=== PATIENT | male | born 1945 | race Caucasian/White ===

== ENCOUNTER 2024-04-09 12:12 | Inpatient (IN) | payer MEDICARE, BC, SELFPAY ==
[2024-04-09 12:25] VITALS: BP 146/81; PULSE 77; RESP 19; TEMP 36.7; O2SAT 98
[2024-04-09 12:28] VITALS: BMI 32.3
--- NOTE | 2024-04-09 12:44 | XR_ITS ---
Examination: CT cervical spine without contrast 2-D sagittal reconstructions 2-D coronal reconstructions 3-D reconstructions. Exam date and time:April 09, 2024 1511 hours Indications patient fell today with injury to the neck, neck pain CTDI:vol (mGy) 9.23 DLP: (mGycm) 223 Technique: Multiple 2 mm axial sections of the cervical spine have been obtained. The coronal and sagittal reconstructions have been obtained. 3-D reconstructions have been obtained. Low dose protocols were performed. One or more of the following dose reduction techniques were used; automated exposure control, adjustment of the mA and/or KV according to patient size, use of iterative reconstruction technique. Findings: Axial sections demonstrate intact base of the skull. C1 exhibit satisfactory relationship to the odontoid. No acute cervical vertebral body fracture seen. Alignment posterior spinous processes satisfactory. Impression: No acute cervical fracture.
--- NOTE | 2024-04-09 12:44 | XR_ITS ---
Examination: CT brain head without contrast. 2-D sagittal coronal reconstructions Date and time of exam:April 09, 2024 1511 hours Comparison April 28, 2019 INDICATIONS: Patient fell today with injury to the head, head pain and neck pain CTDI: vol (mGy):56.7 DLP: (mGycm):1157 Technique: Multiple CT axial sections of the brain have been obtained, 5 mm slice thickness. Contrast has not been administered. 2-D sagittal, coronal reconstructions have been obtained Low dose protocols were performed. One or more of the following dose reduction techniques were used; automated exposure control, adjustment of the mA and/or KV according to patient size, use of iterative reconstruction technique. Findings: No significant ventricular enlargement. Intra-axial or extra-axial hemorrhage density is not seen. No mass effect or midline shift Basal cisterns are not remarkable. Fourth ventricle is midline. Cranial vault intact. Impression: Negative for acute hemorrhage, mass effect or midline shift
--- NOTE | 2024-04-09 12:45 | PD.EDRME ---
Rapid Medical Screening Exam RME Arrival date/time: 04/09/24 12:12 78-year-old male presents to the emergency department today with who reports patient has increased diarrhea and confusion patient has been following. Per the patient's he has dementia and has terminal cancer Chief Complaint: General Adult/Misc Complain Time Seen by Provider: 04/09/24 12:39 Vital signs: Vital Signs Temperature 98.1 F 04/09/24 12:25 Pulse Rate 77 04/09/24 12:25 Respiratory Rate 19 04/09/24 12:25 Blood Pressure 146/81 H 04/09/24 12:25 Pulse Oximetry (%) 98 04/09/24 12:25 Oxygen Delivery Method Room Air 04/09/24 12:25
[2024-04-09 13:12] LABS: Lactate (Lactic Acid) 2.6 mMol/L (0.4-2.0)
--- NOTE | 2024-04-09 13:13 | PC.NURSE ---
Per family at bedside pt has been falling more recently. Pt has been more confused, has incurable colon cancer and has diarrhea, and wears a brief at baseline. Family remains at bedside attentive to pt, IV place, BC collected. Pt currently awaiting main ED providers assessment. Call sparks in reach
[2024-04-09 13:14] LABS: Basophils % (Auto) 0 % (0-2.5); Eosinophils # (Auto) 0.2 Thou/mm3 (0.0-0.5); Eosinophils % (Auto) 2 % (0-10); Hematocrit 43.2 % (41.0-53.0); Hemoglobin 13.1 g/dL (13.5-16.0); Immature Granulocytes % (Auto) 0 % (0-0); Immature Granulocytes Auto 0.02 Thou/mm3 (0.00-0.00); Lymphocytes # (Auto) 0.7 Thou/mm3 (1.0-4.8); Lymphocytes % (Auto) 7 % (10-50); Mean Corpuscular HGB Conc 30.3 g/dl (31.0-37.0); Mean Corpuscular Hemoglobin 27.1 pg (25.0-35.0); Mean Corpuscular Volume 89 fL (80-100); Monocytes # (Auto) 0.8 Thou/mm3 (0.0-0.8); Monocytes % (Auto) 8 % (0-12); Neutrophils # (Auto) 8.2 Thou/mm3 (1.8-7.7); Neutrophils % (Auto) 82 % (37-80); Nucleated Red Blood Cell % 0 /100 WBC (0); Platelet Count 160 Thou/mm3 (140-440); RDW Standard Deviation 63.2 fL (35.1-43.9); Red Blood Count 4.84 Miln/mm3 (4.50-5.90)
[2024-04-09 13:40] LABS: Ammonia < 10 uMol/L (11-32)
[2024-04-09 13:41] LABS: Alanine Aminotransferase 24 U/L (10-49); Albumin, Serum 4.3 gm/dL (3.4-4.8); Albumin/Globulin Ratio 1.3 (1.2-2.2); Alkaline Phosphatase 135 U/L (46-116); Anion Gap 6 (7-16); Aspartate Amino Transferase 34 U/L (0-34); BUN/Creatinine Ratio 13 Ratio (12-20); Bilirubin,Total 0.4 mg/dL (0.3-1.2); Blood Urea Nitrogen 25 mg/dL (9-23); Calcium 9.9 mg/dL (8.3-10.6); Calcium (Corrected) 9.9 mg/dL (8.5-10.1); Carbon Dioxide 31.3 mMol/L (20.0-31.0); Chloride 101 mMol/L (98-107); Estimated Creatinine Clearance 38.8 mL/min (>60); Globulin 3.4 gm/dL (2.3-3.5); Glucose 191 mg/dL (74-106); Osmolality,Calculated 285 (275-295); Potassium 4.7 mMol/L (3.4-5.1); Procalcitonin 0.19 ng/ml (0.0-0.49); Sodium 138 mMol/L (136-145); Total Protein 7.7 gm/dL (5.7-8.2); eGFR 34 See Note
--- NOTE | 2024-04-09 14:48 | PD.EDNV ---
Nausea/Vomit./Diarrhea-RME/HPI General Chief complaint: General Adult/Misc Complain Stated complaint: VERY OUT OF IT; SEVERE DIARRHEA ; HX DEMNTIA, CNX Time Seen by Provider: 04/09/24 12:39 Arrival date/time: 04/09/24 12:12 RME / HPI RME / HPI Narrative: 04/09/24 12:12 78-year-old male patient with history of COPD, asthma, CHF, terminal colon cancer, advanced Alzheimer disease, was brought to the ED by his due to intractable diarrhea. The reported that he has since yesterday 8 episodes of diarrhea watery in character, offensive and other with no blood or mucus. The reported that his diarrhea has been going on for few months now and does not seem to be improving. The also reported that the patient has advanced dementia and he becomes sometimes aggressive. She reported also that he sometimes hallucinate. She reported that he also had multiple recurrent episodes of falls no history loss of consciousness, seizures, or localized weakness. Patient denied any patient denies his symptoms however he reported that he does not hallucinate but his believes that he had similar and does not believe that is something significant. Of note the reported that he was seen 2 weeks ago by the neurologist Dr. Deleon for his Alzheimer's and she mentioned that his dementia is advancing rapidly. Related Data Home Medications ?Medication ?Instructions ?Recorded ?Confirmed bumetanide 1 mg tablet 1 mg PO QDAY 07/03/21 07/16/22 dicyclomine 20 mg tablet 20 mg PO BID 07/03/21 07/16/22 lorazepam 2 mg tablet 2 mg PO BID 07/03/21 07/16/22 warfarin 5 mg tablet 7.5 mg PO QDAY 07/03/21 07/16/22 donepezil 10 mg tablet (Aricept) 10 mg PO HS 09/08/21 07/16/22 sertraline 100 mg tablet 100 mg PO QDAY 09/09/21 07/16/22 cholecalciferol (vitamin D3) 50 50 mcg PO QDAY 07/16/22 07/16/22 mcg (2,000 unit) tablet (Vitamin D3) olanzapine 2.5 mg tablet (Zyprexa) 2.5 mg PO QDAY 07/16/22 07/16/22 quetiapine 25 mg tablet 25 mg PO QDAY 07/16/22 07/16/22 Allergies Allergy/AdvReac Type Severity Reaction Status Date / Time Sulfa (Sulfonamide Allergy Severe Hives Verified 04/09/24 12:20 Antibiotics) ED Exam Narrative Physical exam: GEN: AOx3, able to speak full sentences HEENT: NC/AC, PERRLA, oral mucosa moist, neck supple CVS: RRR, S1-S2 present, no murmurs appreciated RESP: Bruises on the left side of the chest, greenish in color. CTAB GI: soft,non distended, non tender, NBS MSK: able to move all 4 limbs, no lower extremity edema SKIN: warm and dry NATUROPATHIC DOCTOR: CN II-XII and Sensation grossly intact. Course Quality Measures none Orders Category Date Time Status Bedside COVID-19 Antigen Test NOW Care 04/09/24 16:31 Active Diet Cardiac Diet 04/09/[address] cervical spine wo con Stat Exams 04/09/24 12:[address] head/brain wo con Stat Exams 04/09/24 12:44 Completed CXRP [XR chest 1V portable] Urgent Exams 04/09/24 14:52 Completed Ammonia Stat Lab 04/09/24 12:56 Completed Blood Culture (Lab) Stat Lab 04/09/24 13:03 Received CBC Stat Lab 04/09/24 12:56 Completed Comprehensive Metabolic Panel Stat Lab 04/09/24 12:56 Completed Lactate (Lactic Acid) Stat Lab 04/09/24 12:56 Completed Lactic Acid, 3 HR Stat Lab 04/09/24 16:40 Received Procalcitonin Stat Lab 04/09/24 12:56 Completed UA, C/S IF [Urinalysis, C/S if Indicated] Stat Lab 04/09/24 14:45 Completed c diff [Clostridium Difficile PCR] Stat Lab 04/09/24 Ordered Vital Signs Vital signs: Vital Signs Temperature 98.1 F 04/09/24 12:25 Pulse Rate 77 04/09/24 12:25 Respiratory Rate 19 04/09/24 12:25 Blood Pressure 146/81 H 04/09/24 12:25 Pulse Oximetry (%) 98 04/09/24 12:25 Oxygen Delivery Method Room Air 04/09/24 12:25 Nausea/Vomiting/Diarrhea MDM Narrative MDM Narrative:: On evaluation patient was found to have blood pressure of 146/81, pulse rate of 77, WBC of 10, hemoglobin 13.1, sodium and potassium and chloride within normal limits, carbon dioxide 31.3 he is chronically retaining CO2. Patient was found to have serum creatinine level of 2.0 last serum creatinine was 1.5 and it was in January 2024. This increase of serum creatinine most likely secondary to dehydration due to intractable vomiting. Patient also has advanced Alzheimer disease which resolved and hallucination and aggressive behavior as per his and was she reported that she cannot take care of him at home by herself. Patient was also found to have recurrent episodes of fall he has bruising his chest and his left arm secondary to a fall.We contacted the hospitalist team for possible admission for BALDO secondary to intractable diarrhea. Patient data External records reviewed:: [facility] previous records Clinical information provided by:: patient and spouse Social determinants that could affect healthcare access:: none Patient has the following chronic illnesses:: End-stage colon cancer Alzheimer disease CHF COPD How is presenting disease/condition affected by chronic disease/condition?: caused by Evaluation data The following diagnostics were reviewed and interpreted by me:: lab results, radiology exam(s) and EKG tracing(s) Lab and/or radiology exams considered but not ordered:: None Interpretation Summary: Patient most likely has BALDO secondary to dehydration Medications / Prescriptions Medications / Prescriptions considered but not ordered:: None Medication administrations:: as above if given Consultations Consultation(s) initiated? (list below): Yes Diagnosis Nausea Differential Diagnosis: dehydration Most likely diagnosis given after review of the tests above:: Patient most likely has BALDO secondary to dehydration Admission Indicated Admission indicated?: indicated Admission Request Was there a request for admission?: Yes Admission Attestation Admission request attestation: Discussed case with [] from Hospitalist service regarding admission. Discussed patients ED course, exam findings, labs, and radiology results. The Hospitalist [agrees,declines] to accept the patient for admission. Disposition Plan Disposition Plan: Admit Discharge Plan Prescriptions/Referrals Prescriptions/Med Rec: No Action donepezil [Aricept] 10 mg tablet 10 mg PO HS sertraline 100 mg Tablet 100 mg PO QDAY dicyclomine 20 mg tablet 20 mg PO BID lorazepam 2 mg tablet 2 mg PO BID Hold Instructions: Resume on 09/10/21. RESUME TOMORROW 09/10 warfarin 5 mg tablet 7.5 mg PO QDAY Hold Instructions: Resume on 09/10/21. RESUME TOMORROW 09/10/21 bumetanide 1 mg tablet 1 mg PO QDAY quetiapine 25 mg Tablet 25 mg PO QDAY olanzapine [Zyprexa] 2.5 mg Tablet 2.5 mg PO QDAY cholecalciferol (vitamin D3) [Vitamin D3] 50 mcg (2,000 unit) Tablet 50 mcg PO QDAY Referrals: Newton Dunn MD [Primary Care Provider] - In 1 week Problem List Clinical Impression: Acute renal failure, Recurrent falls Patient/Caregiver Discharge Instructions Print Language: Egyptian
--- NOTE | 2024-04-09 14:52 | XR_ITS ---
Examination: AP chest single view Technique one AP portable semiupright chest single view Exam date and time: April 09, 2024 1555 hours INDICATIONS: Injury to the chest today, chest pain FINDINGS: Normal heart size No pneumothorax Old left-sided rib fractures Clavicles ribs do not demonstrate acute fractures IMPRESSION: No pneumothorax pulmonary contusion or hemothorax
[2024-04-09 14:53] LABS: Collection Type, Urine Clean Catch; RBC,Urine 0 /hpf (0-3)
[2024-04-09 15:40] LABS: Bilirubin,Urine Negative (Negative); Blood,Urine Negative (Negative); Clarity,Urine Clear (Clear/Hazy); Color,Urine Lt-Yellow (Lt Yel-Yel); Culture Indicated,Urine Not Indicated; Glucose, Urine Negative (Negative); Hyaline Casts,Urine 2 /hpf (0-1); Ketones,Urine Negative (Negative); Leukocyte Esterase,Urine Negative (Negative); Nitrite,Urine Negative (Negative); PH,Urine 5.5 (5.0-7.0); Protein,Urine Negative (Neg - Trace); Specific Gravity,Urine 1.017 (1.001-1.035); Squamous Epithelial Cell,Urine < 1 /hpf (0-5); Urobilinogen,Urine Negative mg/dL (0.0-1.0); WBC,Urine < 1 /hpf (0-5)
[2024-04-09 16:09] LABS: Reflex Lactate? Y
--- NOTE | 2024-04-09 16:25 | ESHP_ITS ---
Documentation for date of: 04/09/24 [facility] History of Present Illness History of present illness: 78-year-old male patient with history of COPD on home oxygen, asthma, CHF, terminal colon cancer since 2019, advanced Alzheimer disease, was brought to the ED on 04/09/2024 by his due to new onset diarrhea x 2 months, worsening this week. Patient has had diarrhea off and on. Patient's at bedside explained the situation. Last diarrhea episode was yesterday afternoon. Diarrhea appears greenish grainy according to , and had a potent smell. No blood noted in the stool. drove patient to the hospital as she felt she was unable to take care of him any longer. He has been progressively aggressive with . He fell about a week ago and was noted to have a bruise on his left upper chest. Patient has been really wobbly and has difficulty taking steps during the past few days. Patient agree patient appears to have fallen on the left side of his body. Patient's diarrhea started a few weeks ago and has progressively gotten worse. Patient and he flushes down the toilet. This is caused thousands of dollars towards a septic tank according to at bedside. Patient does not consume as much food in the setting of cancer. Patient has lost a lot of weight since cancer diagnosis. Surgeon Dr. Sam Morel and cancer physician Dr. Valdez in [place]. Seen by Dr. Somers and Dr. Zapata. In the ED, patient was hemodynamically stable with creatinine 2.0, GFR 34, lactic acid 2.6. Alkaline phosphatase 135 Patient denies headache, fever, chills, chest pain, palpitation, shortness of breath, dizziness, nausea, vomiting, or constipation. He was found to have BALDO, admitted for management of BALDO and assistance with placement to facility. ED course: Blood pressure 146/81, heart rate 77, respiratory rate 19, temperature 98.1 F, O2 sat 98% room air. WBC within normal limits except hemoglobin 13.1, MCHC 30.3, RDW standard deviation 63.2. CMP reviewed, carbon dioxide 31.3, BUN 25, creatinine 2.0, Baseline Cr 1.5, GFR 34, glucose 191. Lactic acid 2.6. Alkaline phosphatase 135, ammonia less than 10. Urinalysis: Negative cassette esterase, negative nitrate, hyaline cast 2+. C. difficile toxin pending. CXR: No pneumothorax pulmonary contusion or hemothorax. CT head: Negative for acute hemorrhage, mass effect or midline shift. Cervixal Spine CT: No acute cervical fracture. Past medical history: As above Allergies: None Medications: Bumetanide, Ativan, Aricept, furosemide, Family history: Father: Stroke, mother: Diabetes mellitus type 2 Surgical history: Colon resection. Positive Tonsillectomy, Abdominal Surgery and Bowel Surgery (ostomy). Social history: Alcohol and tobacco use distant: About 25 years ago he stopped, illicit drug use in the past.Patient and have 2 male children. 1 of which is on dialysis and the other one is disabled. Review of Systems Review of Systems Narrative Review of Systems: Constitutional: DENIES; Fevers Eyes: DENIES; Loss of vision Head/Ear/Nose: DENIES; Loss of hearing Throat: DENIES; Dysphagia Cardiovascular: DENIES; Chest pain, dyspnea or syncope Respiratory: DENIES; Shortness of breath Gastrointestinal: +nausea,vomiting, diarrhea, abdominal pain. DENIES; Rectal bleeding or melena. Genitourinary: DENIES; Dysuria (painful or difficult urination) Musculoskeletal: DENIES; Arthralgia (pain in a joint),; Skin: DENIES; Rash Neurological: DENIES; Loss of function or movement Psychiatric: DENIES; recent major life stressor, emotional problem, illicit drug use or abuse Endocrinology: DENIES; Weight change Hematologic/Lymphatic: DENIES; Abnormal bruising Allergic/Immunologic: DENIES; Urticaria (hives) Past Medical History Past Medical History NEUROLOGIC: Positive Neurological Disorders, Dementia and Alzheimer's Disease; Negative Seizures CARDIAC: Positive Cardiac Disorders, Atrial Fibrillation, Congestive Heart Failure and Hypertension RESPIRATORY: Positive Chronic Obstructive Pulmonary Disease (COPD), Asthma and Pneumonia GASTROINTESTINAL: Positive Gastrointestinal Disorders (Colon Ca), Diverticulitis, Diverticulosis, Colorectal Cancer and Obesity GENITOURINARY: Positive Genitourinary Disorders (BALDO) and Renal Disease MUSCULOSKELETAL: Positive Musculoskeletal Disorders and Osteoporosis; Negative Arthritis ENT: Negative Deafness ENDOCRINE: Positive Diabetes Mellitus Type 2; Negative Endocrine Disorders, Diabetes Mellitus Type 1 or Hypothyroidism HEMATOLOGIC: Negative Blood Disorders or Anemia PSYCHO/SOCIAL: Positive Depression and Anxiety OTHER HISTORY: Positive Hospitalization, Chicken Pox, Measles, Mumps, Cancer and Colorectal Cancer; Negative Autoimmune Disease, Shingles, Falls, Blood Transfusions, Anesthesia Reactions, Chemotherapy, Radiation Therapy or MRSA Family History FAMILY HISTORY: Negative Family Psychiatric Problems, Family Respiratory Disorders, Family Cardiac Disorders, Family Gastrointestinal Problems, Family Cancer, Family Surgery or Family Anesthesia Reaction Surgical History SURGICAL: Positive Tonsillectomy, Abdominal Surgery and Bowel Surgery (Tumor resection); Negative Joint Replacement or Neurologic Surgery Social History SMOKING STATUS: Former smoker SUBSTANCE USE: former substance user Exam Vital Signs Temp Pulse Resp BP Pulse Ox O2 Del Method 98.1 F 77 19 146/81 H 98 Room Air 04/09/24 12:25 04/09/24 12:25 04/09/24 12:25 04/09/24 12:25 04/09/24 12:25 04/09/24 12:25 Narrative Exam Constitutional: disheveled, pulling on his Identifier bracelet, alert, well- nourished, in no acute distress, sitting at edge of bed. HEENT: NCAT, EOMI, reactive round pupils b/l, patent nares b/l, dry mucous membranes, on room air Lung: CTAB, no wheezing, no rhonchi, no crackles Heart: Regular S1S2, no murmurs, gallops, or rubs Abdomen: Soft, non-tender, normoactive bowel sounds present. No rebounding. No masses. Extremities: No cyanosis, clubbing, no edema of b/l legs, 2+dorsalis pedis pulses present b/l Neurologic: No focal sensory or motor deficits noted, AOx2, appropriate affect Skin: Warm, dry, no lesions or rashes noted Results: Labs 04/11/24 05:36 04/11/24 05:36 Labs: Short CBC 04/09/24 Range/Units 12:56 WBC 10.0 (3.8-10.6) Thou/mm3 Hgb 13.1 L (13.5-16.0) g/dL Hct 43.2 (41.0-53.0) % Plt Count 160 (140-440) Thou/mm3 BMP 04/09/24 12:56 Sodium 138 Potassium 4.7 Chloride 101 Carbon Dioxide 31.3 H BUN 25 H Creatinine 2.0 H Glucose 191 H Calcium 9.9 Liver Function 04/09/24 Range/Units 12:56 Total Bilirubin 0.4 (0.3-1.2) mg/dL AST 34 (0-34) U/L ALT 24 (10-49) U/L Alkaline Phosphatase 135 H (46-116) U/L Albumin 4.3 (3.4-4.8) gm/dL Urine 04/09/24 Range/Units 14:45 Urine Color Lt-Yellow (Lt Yel-Yel) Urine Clarity Clear (Clear/Hazy) Urine pH 5.5 (5.0-7.0) Ur Specific [place] 1.017 (1.001-1.035) Urine Protein Negative (Neg - Trace) Urine Glucose (UA) Negative (Negative) Quality Measures Quality Measures VTE prophylaxis Advance care planning discussed with:: patient Medications Home Medications and Allergies Home Medications ?Medication ?Instructions ?Recorded ?Confirmed ?Type bumetanide 1 mg tablet 1 mg PO QDAY 07/03/21 04/09/24 History dicyclomine 20 mg tablet 20 mg PO BID 07/03/21 04/09/24 History lorazepam 2 mg tablet 2 mg PO BID 07/03/21 04/09/24 History warfarin 5 mg tablet 7.5 mg PO QDAY 07/03/21 04/09/24 History donepezil 10 mg tablet (Aricept) 10 mg PO HS 09/08/21 04/09/24 History sertraline 100 mg tablet 100 mg PO QDAY 09/09/21 04/09/24 History cholecalciferol (vitamin D3) 50 50 mcg PO QDAY 07/16/22 04/09/24 History mcg (2,000 unit) tablet (Vitamin D3) olanzapine 2.5 mg tablet (Zyprexa) 2.5 mg PO QDAY 07/16/22 04/09/24 History quetiapine 25 mg tablet 25 mg PO QDAY 07/16/22 04/09/24 History memantine 10 mg tablet 10 mg PO 1XD 04/09/24 04/09/24 History Allergies Allergy/AdvReac Type Severity Reaction Status Date / Time Sulfa (Sulfonamide Allergy Severe Hives Verified 04/09/24 12:20 Antibiotics) Assessment & Plan Plan 78-year-old male patient with history of COPD on home oxygen, asthma, CHF, terminal colon cancer since 2018, advanced Alzheimer disease, was brought to the ED on 04/09/2024 by his due to new onset diarrhea x 2 months, worsening this week. Patient has had diarrhea off and on. Patient's at bedside explained the situation. Last diarrhea episode was yesterday afternoon. Diarrhea appears greenish grainy according to , and had a potent smell. No blood noted in the stool. drove patient to the hospital as she felt she was unable to take care of him any longer. He has been progressively aggressive with . In the ED, patient was hemodynamically stable with creatinine 2.0, GFR 34, lactic acid 2.6. Alkaline phosphatase 135. Found to have BALDO, admitted for management of BALDO and assistance with placement to facility. Blood pressure 146/81, heart rate 77, respiratory rate 19, temperature 98.1 F, WBC within normal limits except hemoglobin 13.1, MCHC 30.3, RDW standard deviation 63.2. CMP reviewed, carbon dioxide 31.3, glucose 191. Lactic acid 2.6. Alkaline phosphatase 135, ammonia less than 10.C. difficile toxin pending. #Diarrhea DDx: Infectious diarrhea, diverticulosis, Colon cancer with possible metastasis Patient presented in the ED for high volume diarrhea in setting of colon cancer history. Last non-blood diarrheal episode was on 04/08/2024 around noon. Diarrhea was foul-smelling and seedy green in appearance. No hx of recent travel or sick contacts. No active diarrhea at the moment. -C.difficile, WBC cultures,Giardia, stool cultures, pending -Fluid hydration with IV Normal saline -Stool occult blood pending -Blood cultures f/up -Will consider GI consult if diarrhea returns; will hold off on consult. Pending results for the studies above. #BALDO Pre-renal vs post-renal Most likely pre-renal as patient has poor oral intake. states that he mostly eats ice. His meal consumption is low as well, he eats small portions and rarely. BUN 25, creatinine 2.0, Baseline Cr 1.5, GFR 34. -Fluid resucitate, be cautious in setting of CHF -renally dose medications -avoid nephrotoxic agents -Renal panel in a.m #Lactic acidosis Most likely 2/2 underlying infection. Possible GI infection considering patient's foul smelling stool. CXR: No pneumothorax pulmonary contusion or hemothorax. Urinalysis: Negative leukocyte esterase, negative nitrate, hyaline cast 2+. Lactic acid elevated at 2.6 -f.up lactic acid #Hyperglycemia Blood glucose was elevated on ED presentation. Glucose of 191. -A1c -F/up CMP in am #Aggression -requires placement at SNF for agressiveness toward -will consult social media strategist #S/p ground level fall Low suspicion of brain injury in setting of patient appears fully aware and oriented x2. No signs of active confusion or disorientation. He did appear to be pulling at his ID tag in the ED causing minimal bleeding on his left wrist. CT head: Negative for acute hemorrhage, mass effect or midline shift. Cervixal Spine CT: No acute cervical fracture. -no need for treatment/intervention at this moment -Seroquel x1 for aggression -will closely monitor. #COPD on home oxygen #Asthma #Metabolic acidosis History of both COPD and asthma. Likely chronic CO2 retainer from COPD hx. On home O2 per O2 sat 98% room air. -Goal O2: 88-92% -O2 as needed -duonebs prn #CHF (unknown EF) Chronic Patient has history of CHF. -Bumetanide 1mg -strict I & O, weight checks, fluid restrict to 1500cc daily Additional Chronic conditions: #Terminal colon cancer since 2018 #S/p colonic resection, seen by Dr. Somers and Dr. Zapata in 2022 #Advanced Alzheimer disease -restart home dicyclomide, aripiprazole 2mg daily, ativan 2mg daily, lorazepam 2mg daily, memantine 10mg 2/day Discussed case with my attending Dr. Rangel. Thank you, Raven Tijerina, PGY-2 Attending Provider Attestation/Addendum I, Janine Rangel, DO, attest that I was physically present for the ellison portions of the service and evaluated the patient with the resident and I reviewed and discussed the case with the resident and agree with the resident's findings and plans of care as documented above Patient is a 78-year-old male with past medical history of COPD, asthma, A-fib, dementia and stage IV colon cancer who was brought to the ED by his due to altered mental status. Patient suffers from chronic diarrhea due to his history of stage IV colon cancer. However, patient has been noticed to have worsening confusion and unsteadiness prompting his to bring him to the ED. Upon evaluation in the ED, patient has noted to have a lactic acidosis of 2.6 and acute kidney injury. states that the patient has had decreased p.o. intake and has lost more than half of his original body weight. She states also that due to his progressive decline, she is unable to take care of him at home. She denies noting any fever, chills, nausea or vomiting. Will admit patient for acute kidney injury and acute dehydration secondary to diarrhea. Will rule out any infectious causes of diarrhea superimposed to his chronic diarrhea. Patient is pleasantly confused. Will admit to med/surge and resume home meds. Continue with IV fluid hydration and encourage p.o. intake. Will monitor volume status closely given patient's cardiac history.
[2024-04-09 16:50] LABS: Lactic Acid, 3 HR 1.2 mMol/L (0.4-2.0)
[2024-04-09 17:12] VITALS: BP 132/69; PULSE 61; RESP 18; TEMP 36.8; O2SAT 96
--- NOTE | 2024-04-09 17:19 | PC.CC ---
Pt approached by ED attending Dr. Mullen. Pt Mykel Cloud is a 78 yr old male to ED for being very out of it, severe diarrhea. Pt with hx of dementia. ETHERNET NETWORK ARCHITECT CC asked to review pts health coverage for possible placement, as pts is reporting being unable to care for pt any longer. Upon review of pts historical visits, pt was last seen in ED on 03/17/2024, with no current hospital admission. Pt has primary Medicare which will require 3 midnight inpatient stay. Pts secondary health coverage is private coverage. ETHERNET NETWORK ARCHITECT CC gave update to ED attending.
[2024-04-09] MEDS: PANTOPRAZOLE 40 MG TABLET PO (17:39)
[2024-04-09] MEDS: SODIUM CHLORIDE 0.9% 1000 ML 1,000 ML 125 ML IV (17:39)
--- NOTE | 2024-04-09 18:41 | PC.NURSE ---
request med from pharmacy
[2024-04-09 19:17] VITALS: BP 162/96; PULSE 59; RESP 21; TEMP 36.9; O2SAT 95
[2024-04-09] MEDS: QUEtiapine FUMARATE 25 MG TABLET 50 MG PO (19:26)
--- NOTE | 2024-04-09 20:36 | PD.EDADDENDU ---
Emergency Room Addendum Addendum Narrative: I, Dr. Traore have reviewed the history, exam, and assessment of the patient. I have evaluated the patient independently and agree with the plan of care documented by the resident. All diagnostic studies were reviewed and discussed. I confirm the diagnosis as documented by the resident. I was present during the medical decision making for this patient. The patient's plan of care was created between myself and the resident and consistent with our discussion of the patient's case
[2024-04-09] MEDS: LORazepam 0.5 MG TABLET 2 MG PO (21:03)
[2024-04-09 21:56] VITALS: BP 130/70; PULSE 74; RESP 20; TEMP 36.9; O2SAT 93
[2024-04-09 23:18] VITALS: BMI 32.3
[2024-04-10] VITALS (10 sets, daily range): BP systolic 103–137; BP diastolic 54–90; PULSE 52–73; RESP 15–20; TEMP 36.1–36.4; O2SAT 91–98
[2024-04-10] MEDS: SODIUM CHLORIDE 0.9% 1000 ML 1,000 ML 125 ML IV (03:54)
[2024-04-10 06:02] LABS: Basophils % (Auto) 1 % (0-2.5); Eosinophils # (Auto) 0.2 Thou/mm3 (0.0-0.5); Eosinophils % (Auto) 3 % (0-10); Hematocrit 37.4 % (41.0-53.0); Hemoglobin 11.5 g/dL (13.5-16.0); Immature Granulocytes % (Auto) 0 % (0-0); Immature Granulocytes Auto 0.01 Thou/mm3 (0.00-0.00); Lymphocytes # (Auto) 1.1 Thou/mm3 (1.0-4.8); Lymphocytes % (Auto) 18 % (10-50); Mean Corpuscular HGB Conc 30.7 g/dl (31.0-37.0); Mean Corpuscular Hemoglobin 26.9 pg (25.0-35.0); Mean Corpuscular Volume 88 fL (80-100); Monocytes # (Auto) 0.7 Thou/mm3 (0.0-0.8); Monocytes % (Auto) 12 % (0-12); Neutrophils # (Auto) 4.2 Thou/mm3 (1.8-7.7); Neutrophils % (Auto) 67 % (37-80); Nucleated Red Blood Cell % 0 /100 WBC (0); Platelet Count 125 Thou/mm3 (140-440); RDW Standard Deviation 61.1 fL (35.1-43.9); Red Blood Count 4.27 Miln/mm3 (4.50-5.90); White Blood Count 6.3 Thou/mm3 (3.8-10.6)
[2024-04-10 06:16] LABS: INR 1.3 (0.9-1.3); Partial Thromboplastin Time 30.9 Seconds (22.0-36.0); Prothrombin Time 14.2 Seconds (9.0-12.2)
[2024-04-10 06:26] LABS: Glucose Estimated Average 123 mg/dL (80-131); Hemoglobin A1C 5.9 % Hgb (4.8-6.0)
[2024-04-10 06:36] LABS: Alanine Aminotransferase 17 U/L (10-49); Albumin, Serum 3.5 gm/dL (3.4-4.8); Albumin/Globulin Ratio 1.3 (1.2-2.2); Alkaline Phosphatase 92 U/L (46-116); Anion Gap 5 (7-16); Aspartate Amino Transferase 23 U/L (0-34); BUN/Creatinine Ratio 17 Ratio (12-20); Bilirubin,Total 0.5 mg/dL (0.3-1.2); Blood Urea Nitrogen 24 mg/dL (9-23); Calcium 8.6 mg/dL (8.3-10.6); Carbon Dioxide 32.4 mMol/L (20.0-31.0); Chloride 105 mMol/L (98-107); Creatinine (Component) 1.4 mg/dL (0.6-1.3); Estimated Creatinine Clearance 55.4 mL/min (>60); Globulin 2.7 gm/dL (2.3-3.5); Glucose 89 mg/dL (74-106); Osmolality,Calculated 286 (275-295); Phosphorous 3.6 mg/dL (2.4-5.1); Sodium 142 mMol/L (136-145); Total Protein 6.2 gm/dL (5.7-8.2); eGFR 52 See Note
[2024-04-10] MEDS: SERTRALINE HCL 25 MG TABLET 100 MG PO (08:03)
[2024-04-10] MEDS: BUMETANIDE 0.5 MG TABLET 1 MG PO (08:03)
[2024-04-10] MEDS: MEMANTINE HCL 5 MG TABLET 10 MG PO (08:03)
[2024-04-10] MEDS: PANTOPRAZOLE 40 MG TABLET PO (08:04)
[2024-04-10] MEDS: CHOLECALCIFEROL (Vitamin D3) 1,000 IU TABLET 2000 IU PO (08:04)
[2024-04-10] MEDS: QUEtiapine FUMARATE 25 MG TABLET PO (08:04)
[2024-04-10] MEDS: LORazepam 0.5 MG TABLET 2 MG PO ×2 (08:04→20:32)
[2024-04-10] MEDS: OLANZapine 2.5 MG TABLET PO (09:16)
--- NOTE | 2024-04-10 10:49 | PC.SS ---
TOWEL SEWER conducted telephone contact with patient's , Sarah Cloud . She informs she can not hear this radio script writer at the moment and asks radio script writer to call back in a few minutes while she gets settled into a quite area. TOWEL SEWER attempted telephone contact with patient's family member: Maximiliano Mcmahonareal . Unable to reach, provided voicemail requesting call back.
[2024-04-10 11:08] LABS: Base Excess, Venous 5 (-3-3); O2 Saturation, Venous 88 % (96-97); PCO2, Venous 50 mmHg (36-56); PO2, Venous 56 mmHg (15-58)
--- NOTE | 2024-04-10 11:14 | XR_ITS ---
Examination: CT brain head without contrast. 2-D sagittal coronal reconstructions Date and time of exam:April 10, 2024 1138 hours INDICATIONS: Altered mental status today COMPARISON: April 09, 2024 CTDI: vol (mGy):54.4 DLP: (mGycm):1197 Technique: Multiple CT axial sections of the brain have been obtained, 5 mm slice thickness. Contrast has not been administered. 2-D sagittal, coronal reconstructions have been obtained Low dose protocols were performed. One or more of the following dose reduction techniques were used; automated exposure control, adjustment of the mA and/or KV according to patient size, use of iterative reconstruction technique. Findings: No significant ventricular enlargement. Intra-axial or extra-axial hemorrhage density is not seen. No mass effect or midline shift Basal cisterns are not remarkable. Fourth ventricle is midline. Cranial vault intact. Impression: Negative for acute hemorrhage, mass effect or midline shift Advise clinical correlation follow-up accordingly
--- NOTE | 2024-04-10 11:44 | PC.SS ---
INSIDE PHONE SALES conducted telephone contact with patient's , Sarah Cloud to complete initial assessment. Sarah informs the following: Patient lives at home with spouse Sarah and their adult son, Shane Jiménez. Patient's spouse, Sarah was identified as the patient's alternate medical surrogate decision maker. Patient is described to require assistance with completion of ADL's. Patient has a walker at home to assist with ambulation. Patient's PCP is Dr. Dunn. Pharmacy of choice is [facility] in [place]. Patient's Sarah, informs patient has a history of dementia and tends to have aggressive behaviors at times. Patient's informs the patient was diagnosed with colon cancer in 2019. Per patient's , patient receives approximately $2,200 of disability income on a monthly basis. The discharge plan was discussed, and the patient will need SNF placement. Patient's indicates she is unable to care for the patient at this time as she is also helping care for their adult son Shane who is critically ill and is unable to care for both at this time. Preferred SNF at the moment is [facility] and second choice is [facility]. Patient will require a 3-midnight inpatient stay due to Medicare guidelines. health services director to send SNF inquiry for placement. D/c plan: SNF Next of kin: , Sarah Cloud
[2024-04-10] MEDS: WARFARIN 5 MG TABLET 10 MG PO (11:56)
--- NOTE | 2024-04-10 12:06 | PC.SS ---
PASRR completed. Meets level 2. Pending categorical review before closure.
--- NOTE | 2024-04-10 14:38 | ESPR_ITS ---
Documentation for date of: 04/10/24 Subjective Subjective Interval history: Overnight, patient kept attempting to get out of the bed and was raising voice towards the nurses. He was given Seroquel which did not appear to help him. On 04/10/2024 patient is seen and observed at bedside. His and son were in the room while he was being evaluated. Patient appeared more confused and disoriented than the day before. When asked his name, he was speaking gibberish and then properly said his name. He is still ANO x 2. He appears clinically dry. Vomiting was noted at bedside. Clear on auscultation of bilateral lung lobes. No murmurs noted. Will continue home medications. Started warfarin pharmacy to dose. IV fluids were completed. CT head ordered,resulted negative. Exam Vital Signs Temp Pulse Resp BP Pulse Ox O2 Del Method O2 Flow Rate 97.2 F 52 L 18 103/56 L 96 Nasal Cannula 2 04/10/24 12:00 04/10/24 12:00 04/10/24 12:00 04/10/24 12:00 04/10/24 12:00 04/10/24 12:00 04/10/24 12:00 Narrative Exam Constitutional: disheveled, altered, well-nourished, in no acute distress, laying in bed with next to him HEENT: NCAT, EOMI, reactive round pupils b/l, patent nares b/l, dry mucous membranes, on 2L n/C Lung: CTAB, no wheezing, no rhonchi, no crackles Heart: Regular S1S2, no murmurs, gallops, or rubs Abdomen: Soft, non-tender, normoactive bowel sounds present. No rebounding. No masses. Extremities: No cyanosis, clubbing, no edema of b/l legs, 2+dorsalis pedis pulses present b/l Neurologic: No focal sensory or motor deficits noted, AOx2, appropriate affect Skin: Warm, dry, no lesions or rashes noted Objective Labs 04/10/24 05:06 04/10/24 05:06 Labs: Laboratory Results - last 24 hr 04/09/24 04/09/24 04/10/24 14:45 16:40 05:06 WBC 6.3 RBC 4.27 L Hgb 11.5 L Hct 37.4 L MCV 88 MCH 26.9 MCHC 30.7 L RDW Std Deviation 61.1 H Plt Count 125 L D Neut % (Auto) 67 Lymph % (Auto) 18 [place] % (Auto) 12 Eos % (Auto) 3 Baso % (Auto) 1 Neut # (Auto) 4.2 Lymph # (Auto) 1.1 [place] # (Auto) 0.7 Eos # (Auto) 0.2 Baso # (Auto) 0.0 Immature Gran # (Auto) 0.01 H Absolute Nucleated RBC 0.00 Immature Gran % 0 Nucleated RBC % 0 PT 14.2 H INR 1.3 APTT 30.9 VBG pH VBG pCO2 VBG pO2 VBG O2 Sat (Bernard) VBG Base Excess Sodium 142 Potassium 4.0 D Chloride 105 Carbon Dioxide 32.4 H Anion Gap 5 L BUN 24 H Creatinine 1.4 H D Estim Creat Clear Calc 55.4 L eGFR 52 L BUN/Creatinine Ratio [address] Glu mg/dL 123 Hemoglobin A1c 5.9 Calculated Osmolality 286 Lactic Acid 1.2 Calcium 8.6 Corrected Calcium 9.0 Phosphorus 3.6 Magnesium 2.0 Total Bilirubin 0.5 AST 23 ALT 17 Alkaline Phosphatase 92 D Total Protein 6.2 Albumin 3.5 D Globulin 2.7 Albumin/Globulin Ratio 1.3 Ur Collection Type Clean Catch Urine Color Lt-Yellow Urine Clarity Clear Urine pH 5.5 Ur Specific [place] 1.017 Urine Protein Negative Urine Glucose (UA) Negative Urine Ketones Negative Urine Blood Negative Urine Nitrite Negative Urine Bilirubin Negative Urine Urobilinogen (Auto) Negative Ur Leukocyte Esterase Negative Urine RBC 0 Urine WBC < 1 Ur Squamous Epith Cells < 1 Urine Bacteria None Hyaline Casts 2 H Ur Culture Indicated? Not Indicated 04/10/24 10:59 WBC RBC Hgb Hct MCV MCH MCHC RDW Std Deviation Plt Count Neut % (Auto) Lymph % (Auto) [place] % (Auto) Eos % (Auto) Baso % (Auto) Neut # (Auto) Lymph # (Auto) [place] # (Auto) Eos # (Auto) Baso # (Auto) Immature Gran # (Auto) Absolute Nucleated RBC Immature Gran % Nucleated RBC % PT INR APTT VBG pH 7.40 VBG pCO2 50 VBG pO2 56 VBG O2 Sat (Bernard) 88 L VBG Base Excess 5 H Sodium Potassium Chloride Carbon Dioxide Anion Gap BUN Creatinine Estim Creat Clear Calc eGFR BUN/Creatinine Ratio Glucose Estimated Ave Glu mg/dL Hemoglobin A1c Calculated Osmolality Lactic Acid Calcium Corrected Calcium Phosphorus Magnesium Total Bilirubin AST ALT Alkaline Phosphatase Total Protein Albumin Globulin Albumin/Globulin Ratio Ur Collection Type Urine Color Urine Clarity Urine pH Ur Specific [place] Urine Protein Urine Glucose (UA) Urine Ketones Urine Blood Urine Nitrite Urine Bilirubin Urine Urobilinogen (Auto) Ur Leukocyte Esterase Urine RBC Urine WBC Ur Squamous Epith Cells Urine Bacteria Hyaline Casts Ur Culture Indicated? ABG Interpretation ABG results: 04/10/24 10:59 VBG pH 7.40 VBG pCO2 50 VBG pO2 56 VBG Base Excess 5 H Quality Measures Quality Measures VTE prophylaxis Advance care planning discussed with:: patient Assessment & Plan Assessment Current Active Medications: Generic Name Dose Route Start Last Admin Trade Name Freq PRN Reason Stop Dose Admin Acetaminophen 650 mg 04/09/24 17:13 Acetaminophen 325 Mg Tablet PO 05/09/24 17:12 Q6H PRN Fever >101.5 Acetaminophen 650 mg 04/09/24 17:13 Acetaminophen 325 Mg Tablet PO 05/09/24 17:12 Q6H PRN PAIN SCALE 1-3 (mild Albuterol/Ipratropium 3 ml 04/09/24 18:11 Albuterol/Ipratropium (Duoneb) Rt Kayleen 3 Ml Nebu INH 05/09/24 18:10 Q2HR PRN SHORTNESS OF BREATH OR WHEEZE Bumetanide 1 mg 04/10/24 09:00 04/10/24 08:03 Bumetanide 0.5 Mg Tablet PO 05/10/24 08:59 1 mg QDAY SAJI Administration Donepezil HCl 10 mg 04/09/24 21:00 04/09/24 22:12 Donepezil Hcl 5 Mg Tablet PO 05/09/24 20:59 Not Given HS SAJI Lorazepam 2 mg 04/09/24 21:00 04/10/24 08:04 Lorazepam 0.5 Mg Tablet PO 04/14/24 20:59 2 mg BID SAJI Administration Memantine 10 mg 04/10/24 09:00 04/10/24 08:03 Memantine Hcl 5 Mg Tablet PO 05/10/24 08:59 10 mg QDAY SAJI Administration Olanzapine 2.5 mg 04/10/24 09:00 04/10/24 09:16 Olanzapine 2.5 Mg Tablet PO 05/10/24 08:59 2.5 mg QDAY SAJI Administration Ondansetron HCl 4 mg 04/09/24 17:13 Ondansetron Inj 2 Mg/Ml Inj 2 Ml IV 05/09/24 17:12 Q6H PRN NAUSEA OR VOMITING Protocol Pantoprazole Sodium 40 mg 04/09/24 17:30 04/10/24 08:04 Pantoprazole 40 Mg Tablet PO 05/09/24 17:29 40 mg QDAY SAJI Administration Pharmacy Consult 1 each 04/10/24 10:45 Pharmacy To Dose Warfarin PO 05/10/24 10:44 QDAY PRN CONSULT Quetiapine Fumarate 25 mg 04/10/24 09:00 04/10/24 08:04 Quetiapine Fumarate 25 Mg Tablet PO 05/10/24 08:59 25 mg QDAY SAJI Administration Sertraline HCl 100 mg 04/10/24 09:00 04/10/24 08:03 Sertraline Hcl 25 Mg Tablet PO 05/10/24 08:59 100 mg QDAY SAJI Administration Vitamin D 2,000 iu 04/10/24 09:00 04/10/24 08:04 Cholecalciferol (Vitamin D3) 1,000 Iu Tablet PO 05/10/24 08:59 2,000 iu QDAY SAJI Administration Plan 78-year-old male patient with history of COPD on home oxygen, asthma, CHF, terminal colon cancer since 2019, advanced Alzheimer disease, was brought to the ED on 04/09/2024 by his due to new onset diarrhea x 2 months, worsening this week. Patient has had diarrhea off and on. Patient's at bedside explained the situation. Last diarrhea episode was yesterday afternoon. Diarrhea appears greenish grainy according to , and had a potent smell. No blood noted in the stool. drove patient to the hospital as she felt she was unable to take care of him any longer. He has been progressively aggressive with . In the ED, patient was hemodynamically stable with creatinine 2.0, GFR 34, lactic acid 2.6. Alkaline phosphatase 135. Found to have BALDO, admitted for management of BALDO and assistance with placement to facility. # Acute on chronic encephalopathy Most likely secondary to worsening dementia versus medication induced. Patient has a history of dementia and may disappear with worsening mental presentation from it. Patient appeared more confused and disoriented than the day before. When asked his name, he was speaking gibberish and then properly said his name. He is still ANO x 2. He appears clinically dry. CT head ordered,resulted negative. -Will continue home medications. -requires placement at SNF as is unable to care for patient -social service liaison on board -Follow-up CMP #Stage IV colon cancer #Chronic diarrhea 2/2 above DDx: Infectious diarrhea, diverticulosis, Colon cancer with possible metastasis Patient presented in the ED for high volume diarrhea in setting of colon cancer history. Last non-blood diarrheal episode was on 04/08/2024 around noon. Patient developed vomiting on 04/10/2024. Patient likely has peptic ulcer disease as he has presentation with nausea and vomiting make this diagnosis more likely. Suspicion of reccurrence of his colon cancer with mets to the stomach or esophagus in setting of low food intake and ongoing weight loss. Patient possibly has Clostridium difficile as diarrhea was foul-smelling and seedy green in appearance. No hx of recent travel or sick contacts. No active diarrhea at the moment. -Blood cultures f/up -C.difficile, WBC cultures,Giardia, stool cultures, pending; unable to collect due to no stool production at the moment. -Stool occult blood pending -Will consider GI consult if diarrhea returns; will hold off on consult. Pending results for the studies above. #BALDO Pre-renal vs post-renal Most likely pre-renal as patient has poor oral intake. states that he mostly eats ice. His meal consumption is low as well, he eats small portions and rarely. BUN 25, creatinine 2.0, Baseline Cr 1.5, GFR 34. Cr downtreded to 1.4. -renally dose medications -avoid nephrotoxic agents -Renal panel in a.m #Atrial fibrillation Patient has a history of atrial fibrillation followed by Dr. Dacosta. [id number] 2. Has bled of 2. -Warfarin pharmacy to dose -Follow-up PT, PTT and INR #Pre-diabetes #Hyperglycemia, resolved Blood glucose was elevated on ED presentation. Glucose of 89. A1c of 5.9%. -F/up CMP in am #Thrombocytopenia Likely secondary to secondary to vitamin B12 or folate deficiency. Patient likely has recurrent terminal colon cancer. -Pending folate and B12. -Follow-up CBC #S/p ground level fall # Generalized weakness Low suspicion of brain injury in setting of patient appears fully aware and oriented x2. No signs of active confusion or disorientation. He did appear to be pulling at his ID tag in the ED causing minimal bleeding on his left wrist. CT head: Negative for acute hemorrhage, mass effect or midline shift. Cervixal Spine CT: No acute cervical fracture. -no need for treatment/intervention at this moment -restarted home meds -will closely monitor. #COPD on home oxygen #Asthma #Metabolic acidosis History of both COPD and asthma. Likely chronic CO2 retainer from COPD hx. On home O2 per O2 sat 98% on 02. -Goal O2: 88-92% -O2 as needed -duonebs prn #CHF (unknown EF) Chronic Patient has history of CHF. -Bumetanide 1mg -strict I & O, weight checks, fluid restrict to 1500cc daily #Lactic acidosis, resolved #Acute encephalopathy Most likely secondary to worsening dementia vs Additional Chronic conditions: #Terminal colon cancer since 2018 #S/p colonic resection, seen by Dr. Somers and Dr. Zapata in 2022 #Advanced Alzheimer disease -restart home dicyclomide, aripiprazole 2mg daily, ativan 2mg daily, lorazepam 2mg daily, memantine 10mg 2/day. Dispo: Admitted for BALDO, BALDO improving.Pending placement to SNF. Discussed case with my attending Dr. Rangel. Thank you, Raven Tijerina, PGY-2 Attending Provider Attestation/Addendum Janine Langley, DO, attest that I was physically present for the ellison portions of the service and evaluated the patient with the resident and I reviewed and discussed the case with the resident and agree with the resident's findings and plans of care as documented above Patient seen and evaluated this AM. No family at bedside. Patient was able to answer certain questions appropriately in articulate manner. However, patient was somnolent and occasionally mumble gibberish to questions. May be secondary to the fact that the patient was agitated overnight. CT head was ordered and negative for any acute intracranial findings. Patient was back to baseline mental status upon re-evaluation in the afternoon. Will have PT work with patient. BALDO resolved. Encourage PO hydration and DC IV fluids at this time. Will need SNF placement.
--- NOTE | 2024-04-10 14:55 | PC.SS ---
Rounding note: patient has elevated sodium. Pending 3 midnights stay due to Medicare guidelines.
[2024-04-10] MEDS: DONEPEZIL HCL 5 MG TABLET 10 MG PO (20:32)
[2024-04-11] VITALS (10 sets, daily range): BP systolic 120–142; BP diastolic 68–90; PULSE 60–85; RESP 16–91; TEMP 36.1–36.6; O2SAT 91–99; BMI 32.4
[2024-04-11 01:48] LABS: Stool for WBCs None Seen (Negative)
[2024-04-11 06:28] LABS: OBS Card Lot # 23001; OBS Developer Lot # 23003; OBS Performed By gundc2; OBS QC OK? Yes; Occult Blood, Stool Negative (Negative)
[2024-04-11 06:35] LABS: Basophils % (Auto) 0 % (0-2.5); Eosinophils # (Auto) 0.3 Thou/mm3 (0.0-0.5); Eosinophils % (Auto) 4 % (0-10); Hematocrit 40.3 % (41.0-53.0); Hemoglobin 12.2 g/dL (13.5-16.0); Immature Granulocytes % (Auto) 0 % (0-0); Immature Granulocytes Auto 0.03 Thou/mm3 (0.00-0.00); Lymphocytes # (Auto) 0.9 Thou/mm3 (1.0-4.8); Lymphocytes % (Auto) 13 % (10-50); Mean Corpuscular HGB Conc 30.3 g/dl (31.0-37.0); Mean Corpuscular Hemoglobin 27.2 pg (25.0-35.0); Mean Corpuscular Volume 90 fL (80-100); Monocytes # (Auto) 0.6 Thou/mm3 (0.0-0.8); Monocytes % (Auto) 8 % (0-12); Neutrophils # (Auto) 5.1 Thou/mm3 (1.8-7.7); Neutrophils % (Auto) 73 % (37-80); Nucleated Red Blood Cell % 0 /100 WBC (0); Platelet Count 98 Thou/mm3 (140-440); RDW Standard Deviation 61.1 fL (35.1-43.9); Red Blood Count 4.49 Miln/mm3 (4.50-5.90); White Blood Count 6.9 Thou/mm3 (3.8-10.6)
[2024-04-11 06:49] LABS: INR 1.4 (0.9-1.3); Prothrombin Time 14.6 Seconds (9.0-12.2)
[2024-04-11 07:04] LABS: Alanine Aminotransferase 15 U/L (10-49); Albumin, Serum 3.7 gm/dL (3.4-4.8); Albumin/Globulin Ratio 1.2 (1.2-2.2); Alkaline Phosphatase 96 U/L (46-116); Anion Gap 3 (7-16); Aspartate Amino Transferase 25 U/L (0-34); BUN/Creatinine Ratio 16 Ratio (12-20); Bilirubin,Total 0.4 mg/dL (0.3-1.2); Blood Urea Nitrogen 21 mg/dL (9-23); Calcium (Corrected) 9.2 mg/dL (8.5-10.1); Chloride 104 mMol/L (98-107); Creatinine (Component) 1.3 mg/dL (0.6-1.3); Estimated Creatinine Clearance 59.7 mL/min (>60); Glucose 100 mg/dL (74-106); Magnesium 2.1 mg/dL (1.6-2.6); Osmolality,Calculated 284 (275-295); Phosphorous 2.7 mg/dL (2.4-5.1); Potassium 4.7 mMol/L (3.4-5.1); Sodium 141 mMol/L (136-145); Total Protein 6.7 gm/dL (5.7-8.2); eGFR 57 See Note
--- NOTE | 2024-04-11 08:09 | ESPR_ITS ---
Documentation for date of: 04/11/24 Subjective Subjective Interval history: Patient seen and examined at bedside. He urinated into his water basin this morning. States he was able to sleep well at night. Hemodynamically stable. Dementia with waxing and waning, improving Remains AAox2. Able to speak clearly today. Patient denies headache, fever, chills, chest pain, palpitation, shortness of breath, dizziness, nausea, vomiting, diarrhea, or constipation. Consulted Neurology for recommendations of neuro medications-- in an attempt to prevent polypharmacy. Exam Vital Signs Temp Pulse Resp BP Pulse Ox O2 Del Method O2 Flow Rate 97.1 F 65 19 129/86 H 97 Nasal Cannula 2 04/11/24 08:00 04/11/24 08:00 04/11/24 08:00 04/11/24 08:00 04/11/24 08:00 04/11/24 08:00 04/11/24 08:00 Narrative Exam Constitutional: disheveled, well-nourished, in no acute distress, laying in bed. HEENT: NCAT, EOMI, reactive round pupils b/l, patent nares b/l, dry mucous membranes, on 2L n/C Lung: CTAB, no wheezing, no rhonchi, no crackles Heart: Regular S1S2, no murmurs, gallops, or rubs Abdomen: Soft, non-tender, normoactive bowel sounds present. No rebounding. No masses. Extremities: No cyanosis, clubbing, no edema of b/l legs, 2+dorsalis pedis pulses present b/l Neurologic: No focal sensory or motor deficits noted, AOx2, appropriate affect Skin: Warm, dry, no lesions or rashes noted Objective Labs 04/13/24 04:15 04/13/24 04:15 Labs: Laboratory Results - last 24 hr 04/10/24 04/11/24 04/11/24 10:59 00:35 05:36 WBC 6.9 RBC 4.49 L Hgb 12.2 L Hct 40.3 L MCV 90 MCH 27.2 MCHC 30.3 L RDW Std Deviation 61.1 H Plt Count 98 L D Neut % (Auto) 73 Lymph % (Auto) 13 [place] % (Auto) 8 Eos % (Auto) 4 Baso % (Auto) 0 Neut # (Auto) 5.1 Lymph # (Auto) 0.9 L [place] # (Auto) 0.6 Eos # (Auto) 0.3 Baso # (Auto) 0.0 Immature Gran # (Auto) 0.03 H Absolute Nucleated RBC 0.00 Immature Gran % 0 Nucleated RBC % 0 PT 14.6 H INR 1.4 H VBG pH 7.40 VBG pCO2 50 VBG pO2 56 VBG O2 Sat (Bernard) 88 L VBG Base Excess 5 H Sodium 141 Potassium 4.7 D Chloride 104 Carbon Dioxide 34.0 H Anion Gap 3 L BUN 21 Creatinine 1.3 Estim Creat Clear Calc 59.7 L eGFR 57 L BUN/Creatinine Ratio 16 Glucose 100 Calculated Osmolality 284 Calcium 9.0 Corrected Calcium 9.2 Phosphorus 2.7 Magnesium 2.1 Total Bilirubin 0.4 AST 25 ALT 15 Alkaline Phosphatase 96 Total Protein 6.7 Albumin 3.7 Globulin 3.0 Albumin/Globulin Ratio 1.2 Stool Occult Blood Negative Stool for White Cells None Seen Stl C. diff Tox B Gene Cancelled ABG Interpretation ABG results: 04/10/24 10:59 VBG pH 7.40 VBG pCO2 50 VBG pO2 56 VBG Base Excess 5 H Quality Measures Quality Measures VTE prophylaxis Advance care planning discussed with:: patient Assessment & Plan Assessment Current Active Medications: Generic Name Dose Route Start Last Admin Trade Name Freq PRN Reason Stop Dose Admin Acetaminophen 650 mg 04/09/24 17:13 Acetaminophen 325 Mg Tablet PO 05/09/24 17:12 Q6H PRN Fever >101.5 Acetaminophen 650 mg 04/09/24 17:13 Acetaminophen 325 Mg Tablet PO 05/09/24 17:12 Q6H PRN PAIN SCALE 1-3 (mild Albuterol/Ipratropium 3 ml 04/09/24 18:11 Albuterol/Ipratropium (Duoneb) Rt Kayleen 3 Ml Nebu INH 05/09/24 18:10 Q2HR PRN SHORTNESS OF BREATH OR WHEEZE Bumetanide 1 mg 04/10/24 09:00 04/10/24 08:03 Bumetanide 0.5 Mg Tablet PO 05/10/24 08:59 1 mg QDAY SAJI Administration Donepezil HCl 10 mg 04/09/24 21:00 04/10/24 20:32 Donepezil Hcl 5 Mg Tablet PO 12/04/24 20:59 10 mg HS SAJI Administration Lorazepam 2 mg 04/09/24 21:00 04/10/24 20:32 Lorazepam 0.5 Mg Tablet PO 04/14/24 20:59 2 mg BID SAJI Administration Memantine 10 mg 04/10/24 09:00 04/10/24 08:03 Memantine Hcl 5 Mg Tablet PO 05/10/24 08:59 10 mg QDAY SAJI Administration Olanzapine 2.5 mg 04/10/24 09:00 04/10/24 09:16 Olanzapine 2.5 Mg Tablet PO 05/10/24 08:59 2.5 mg QDAY SAJI Administration Ondansetron HCl 4 mg 04/09/24 17:13 Ondansetron Inj 2 Mg/Ml Inj 2 Ml IV 05/09/24 17:12 Q6H PRN NAUSEA OR VOMITING Protocol Pantoprazole Sodium 40 mg 04/09/24 17:30 04/10/24 08:04 Pantoprazole 40 Mg Tablet PO 05/09/24 17:29 40 mg QDAY SAJI Administration Pharmacy Consult 1 each 04/10/24 10:45 Pharmacy To Dose Warfarin PO 05/10/24 10:44 QDAY PRN CONSULT Quetiapine Fumarate 25 mg 04/10/24 09:00 04/10/24 08:04 Quetiapine Fumarate 25 Mg Tablet PO 05/10/24 08:59 25 mg QDAY SAJI Administration Sertraline HCl 100 mg 04/10/24 09:00 04/10/24 08:03 Sertraline Hcl 25 Mg Tablet PO 05/10/24 08:59 100 mg QDAY SAJI Administration Vitamin D 2,000 iu 04/10/24 09:00 04/10/24 08:04 Cholecalciferol (Vitamin D3) 1,000 Iu Tablet PO 05/10/24 08:59 2,000 iu QDAY SAJI Administration Plan 78-year-old male patient with history of COPD on home oxygen, asthma, CHF, terminal colon cancer since 2019, advanced Alzheimer disease, was brought to the ED on 04/09/2024 by his due to new onset diarrhea x 2 months, worsening this week. Patient has had diarrhea off and on. Patient's at bedside explained the situation. Last diarrhea episode was yesterday afternoon. Diarrhea appears greenish grainy according to , and had a potent smell. No blood noted in the stool. drove patient to the hospital as she felt she was unable to take care of him any longer. He has been progressively aggressive with . In the ED, patient was hemodynamically stable with creatinine 2.0, GFR 34, lactic acid 2.6. Alkaline phosphatase 135. Found to have BALDO, admitted for management of BALDO and assistance with placement to facility. # Acute on chronic encephalopathy Most likely secondary to worsening dementia versus medication induced. He is still ANO x 2. CT head negative. Electrolytes within normal limits. Patient presented with aggression and code pelayo called today. Haldol 2.5mg x1 given. Plan: -Consulted Neurology; appreciate recommendations -Modified home medications -requires placement at SNF as is unable to care for patient;social insurance administrator on board -Follow-up CMP #Stage IV colon cancer #Chronic diarrhea 2/2 above DDx: Infectious diarrhea, diverticulosis, Colon cancer with possible metastasis Patient presented in the ED for high volume diarrhea (foul-smelling and seedy) in setting of colon cancer history. Patient likely has peptic ulcer disease as he had nausea,vomiting, and upset stomach. Colon cancer with mets to the stomach or esophagus possible in setting of low food intake and ongoing weight loss. No hx of recent travel or sick contacts. WBC cultures, stool cultures, Stool occult blood negative. -Blood cultures negative prelim Plan: -C.difficile, Giardia pending #BALDO Pre-renal vs post-renal Most likely pre-renal as patient has poor oral intake. states that he mostly eats ice. His meal consumption is low as well, he eats small portions and rarely. BUN 25, creatinine 2.0, Baseline Cr 1.5, GFR 34. Cr downtreded to 1.3. -renally dose medications -avoid nephrotoxic agents -Renal panel in a.m #Atrial fibrillation Patient has a history of atrial fibrillation followed by Dr. Dacosta. [id number] 2. Has bled of 2. -Warfarin 7.5mg ordered to start 04/11/2024. -Follow-up PT, PTT and INR #Pre-diabetes #Hyperglycemia, resolved Blood glucose was elevated on ED presentation. Glucose of 100. A1c of 5.9%. -F/up CMP in am #Thrombocytopenia Likely secondary to secondary to vitamin B12 or folate deficiency. Patient likely has recurrent terminal colon cancer. -Pending folate and B12. -Follow-up CBC #S/p ground level fall #Generalized weakness Low suspicion of brain injury in setting of patient appears fully aware and oriented x2. No signs of active confusion or disorientation. CT head: Negative for acute hemorrhage, mass effect or midline shift. Cervixal Spine CT: No acute cervical fracture. -no need for treatment/intervention at this moment -restarted home meds -will closely monitor. #COPD on home oxygen #Asthma #Metabolic acidosis History of both COPD and asthma. Likely chronic CO2 retainer from COPD hx. On home O2 per O2 sat 98% on 02. -Goal O2: 88-92% -O2 as needed -duonebs prn #CHF (unknown EF) Chronic Patient has history of CHF. -Bumetanide 1mg -strict I & O, weight checks, fluid restrict to 1500cc daily #Lactic acidosis, resolved #Acute encephalopathy Most likely secondary to worsening dementia vs Additional Chronic conditions: #Terminal colon cancer since 2018 #S/p colonic resection, seen by Dr. Somers and Dr. Zapata in 2022 #Advanced Alzheimer disease - aripiprazole 2mg daily, ativan 1mg daily, memantine 10mg 2/day, seroquel 50mg daily Dispo: Admitted for BALDO, resolved. Pending placement to SNF. Discussed case with my attending Dr. Pathak. Thank you, Raven Tijerina, PGY-2 Attending Provider Attestation/Addendum Face to face evaluation was performed by me. I have personally seen and examined the patient. I discussed the assessment and plan with the entire medicine team. I reviewed available medical records, imaging studies, laboratory results. I agree with the above subjective data, objective findings, assessment and plan except as corrected by me or noted below Generalized weakness History of stage IV colon cancer, s/p resection Advanced dementia, likely Alzheimer's type Chronic heart failure, seems to be not in exacerbation at this point, unknown previous ejection fraction COPD and chronic hypoxic respite failure on home oxygen Acute kidney injury due to dehydration prerenal etiology cannot rule out acute tubular necrosis chronic diarrhea Chronic anticoagulation with warfarin -Continue current management, monitor labs/vitals/clinical course closely. Continue dicyclomine -Bumetanide -Current he has olanzapine and quetiapine was prescribed, personally I would prefer him to get one of them. Will probably go with quetiapine Continue warfarin INR goal is above 2 in his case probably 2?2.5 is the goal Would definitely recommend him to be placed at halfway facility for nursing care/24-hour supervision, looks like family will not be able to provide appropriate care for this unfortunate gentleman
--- NOTE | 2024-04-11 08:32 | PC.SS ---
Addendum entered by BRANNON Campos 04/11/24 15:15: [facility] has declined due to aggressive behavior from patient. Reached out to [facility] as family's second choice to identify if they can accept the patient. Pending response. Original Note: SNF inquiry sent out via [employer]. Awaiting responses.
[2024-04-11] MEDS: LORazepam 0.5 MG TABLET 2 MG PO (09:07)
[2024-04-11] MEDS: SERTRALINE HCL 25 MG TABLET 100 MG PO (09:07)
[2024-04-11] MEDS: CHOLECALCIFEROL (Vitamin D3) 1,000 IU TABLET 2000 IU PO (09:08)
[2024-04-11] MEDS: MEMANTINE HCL 5 MG TABLET 10 MG PO (09:08)
[2024-04-11] MEDS: BUMETANIDE 0.5 MG TABLET 1 MG PO (09:09)
[2024-04-11] MEDS: QUEtiapine FUMARATE 25 MG TABLET PO ×2 (09:10→12:20)
[2024-04-11] MEDS: OLANZapine 2.5 MG TABLET PO (09:10)
[2024-04-11] MEDS: PANTOPRAZOLE 40 MG TABLET PO (09:10)
--- NOTE | 2024-04-11 12:05 | PC.NURSE ---
notified by family that pt being aggressive, entered room and pt stating, im going to get up and swing at the first person that gets in my way, so i guess thats you . Oliver pelayo called at this time.
[2024-04-11] MEDS: WARFARIN 5 MG TABLET 10 MG PO (12:25)
--- NOTE | 2024-04-11 13:44 | PC.NURSE ---
pt threatening this nurse, stating i need to go home, im gonna swing at you, its going to be a brawl . pt stood up toward this nurse, nicole pelayo called at this time.
--- NOTE | 2024-04-11 14:10 | PD.RESCONSUL ---
HPI Data of Consult Requesting Physician: Prosper Pathak MD Admitting Provider: Janine Rangel DO Attending Provider: Prosper Pathak MD Primary Care Provider: Newton Dunn MD Consult Narrative Reason for consult: worsening dementia History of present illness: Patient is a 78-year-old male advanced Alzheimer's dementia, COPD on home O2, colon cancer s/p colostomy, CHF (unknown EF) who initially was brought for worsening new onset diarrhea. Stool studies are pending including C. difficile, stool cultures, Giardia. Patient's states he is becoming progressively more aggressive, and additionally unstable when ambulating, culminating in a fall approximately week ago. is also concerned for poor oral intake, and has noticed weight loss. In the ED, vitals were significant for mild hypertension. CHEM panel was concerning for mild BALDO, elevated lactic acid. Neurology was consulted for worsening Alzheimer's dementia. 04/11. Patient was seen in the afternoon. He had multiple code ronni today and per RN, patient had just received Haldol. Patient answered some questions appropriately, but was unable to answer all questions fully. cc:: cc: Prosper Pathak MD Review of Systems Review of Systems ROS Unobtainable: unobtainable due to mental status Exam Vital Signs Temp Pulse Resp BP Pulse Ox O2 Del Method O2 Flow Rate 97.8 F 70 19 120/68 94 L Nasal Cannula 2 04/11/24 12:00 04/11/24 12:00 04/11/24 12:00 04/11/24 12:00 04/11/24 12:00 04/11/24 12:00 04/11/24 12:00 Narrative Exam Gen: AAOx1 (self), appears confused HEENT: NCAT, PERRLA, EOMI, MM dry, NC off to side CVS: normal S1, S2. RRR. No MRG Resp: CTA B/L. No rhonchi, rales, crackles or wheezing Abd: soft, non-tender, non-distended. BS+ in all 4 quadrants MSK: Good ROM in BUE & BLE. No edema or rash. Neuro: CN II-XII grossly intact. Strength 5/5 in BUE & BLE. Sensory intact. Results Labs 04/11/24 05:36 04/11/24 05:36 Labs: Short CBC 04/11/24 Range/Units 05:36 WBC 6.9 (3.8-10.6) Thou/mm3 Hgb 12.2 L (13.5-16.0) g/dL Hct 40.3 L (41.0-53.0) % Plt Count 98 L D (140-440) Thou/mm3 BMP 04/11/24 05:36 Sodium 141 Potassium 4.7 D Chloride 104 Carbon Dioxide 34.0 H BUN 21 Creatinine 1.3 Glucose 100 Calcium 9.0 Liver Function 04/11/24 Range/Units 05:36 Total Bilirubin 0.4 (0.3-1.2) mg/dL AST 25 (0-34) U/L ALT 15 (10-49) U/L Alkaline Phosphatase 96 (46-116) U/L Albumin 3.7 (3.4-4.8) gm/dL ABG Interpretation ABG results: 04/10/24 10:59 VBG pH 7.40 VBG pCO2 50 VBG pO2 56 VBG Base Excess 5 H Quality Measures Quality Measures VTE prophylaxis Advance care planning discussed with:: other (none) Medications Home Medications and Allergies Home Medications ?Medication ?Instructions ?Recorded ?Confirmed ?Type bumetanide 1 mg tablet 1 mg PO QDAY 07/03/21 04/09/24 History dicyclomine 20 mg tablet 20 mg PO BID 07/03/21 04/09/24 History lorazepam 2 mg tablet 2 mg PO BID 07/03/21 04/09/24 History warfarin 5 mg tablet 7.5 mg PO QDAY 07/03/21 04/09/24 History donepezil 10 mg tablet (Aricept) 10 mg PO HS 09/08/21 04/09/24 History sertraline 100 mg tablet 100 mg PO QDAY 09/09/21 04/09/24 History cholecalciferol (vitamin D3) 50 50 mcg PO QDAY 07/16/22 04/09/24 History mcg (2,000 unit) tablet (Vitamin D3) olanzapine 2.5 mg tablet (Zyprexa) 2.5 mg PO QDAY 07/16/22 04/09/24 History quetiapine 25 mg tablet 25 mg PO QDAY 07/16/22 04/09/24 History memantine 10 mg tablet 10 mg PO 1XD 04/09/24 04/09/24 History Allergies Allergy/AdvReac Type Severity Reaction Status Date / Time Sulfa (Sulfonamide Allergy Severe Hives Verified 04/09/24 12:20 Antibiotics) Visit Medications Acetaminophen (Acetaminophen 325 Mg Tablet) 650 mg PO Q6H PRN PRN Reason: Fever >101.5 Stop: 05/09/24 17:12 Acetaminophen (Acetaminophen 325 Mg Tablet) 650 mg PO Q6H PRN PRN Reason: PAIN SCALE 1-3 (mild Stop: 05/09/24 17:12 Albuterol/Ipratropium (Albuterol/Ipratropium (Duoneb) Rt Kayleen 3 Ml Nebu) 3 ml INH Q2HR PRN PRN Reason: SHORTNESS OF BREATH OR WHEEZE Stop: 05/09/24 18:10 Bumetanide (Bumetanide 0.5 Mg Tablet) 1 mg PO QDAY [facility] Stop: 05/10/24 08:59 Last Admin: 04/11/24 09:09 Dose: 1 mg Donepezil HCl (Donepezil Hcl 5 Mg Tablet) 10 mg PO HS [facility] Stop: 05/09/24 20:59 Last Admin: 04/10/24 20:32 Dose: 10 mg Lorazepam (Lorazepam 0.5 Mg Tablet) 1 mg PO BID [facility] Stop: 04/16/24 20:59 Memantine (Memantine Hcl 5 Mg Tablet) 10 mg PO QDAY [facility] Stop: 05/10/24 08:59 Last Admin: 04/11/24 09:08 Dose: 10 mg Ondansetron HCl (Ondansetron Inj 2 Mg/Ml Inj 2 Ml) 4 mg IV Q6H PRN; Protocol PRN Reason: NAUSEA OR VOMITING Stop: 05/09/24 17:12 Pantoprazole Sodium (Pantoprazole 40 Mg Tablet) 40 mg PO QDAY [facility] Stop: 05/09/24 17:29 Last Admin: 04/11/24 09:10 Dose: 40 mg Quetiapine Fumarate (Quetiapine Fumarate 25 Mg Tablet) 50 mg PO QDAY [facility] Stop: 05/12/24 08:59 Sertraline HCl (Sertraline Hcl 25 Mg Tablet) 100 mg PO QDAY [facility] Stop: 05/10/24 08:59 Last Admin: 04/11/24 09:07 Dose: 100 mg Vitamin D (Cholecalciferol (Vitamin D3) 1,000 Iu Tablet) 2,000 iu PO QDAY [facility] Stop: 05/10/24 08:59 Last Admin: 04/11/24 09:08 Dose: 2,000 iu Warfarin Sodium (Warfarin 5 Mg Tablet) 7.5 mg PO QDAY@1200 [facility] Stop: 04/26/24 11:59 Discontinued Medications Aripiprazole (Aripiprazole 5 Mg Tablet) 2 mg PO QDAY [facility] Stop: 05/11/24 12:14 Aripiprazole (Aripiprazole 5 Mg Tablet) 2.5 mg PO QDAY [facility] Stop: 05/12/24 08:59 Donepezil HCl (Donepezil Hcl 5 Mg Tablet) 5 mg PO HS [facility] Stop: 05/09/24 20:59 Haloperidol Lactate (Haloperidol Lact Inj 5 Mg/Ml Vial) 2.5 mg IV X1 ONE Stop: 04/11/24 13:51 Sodium Chloride (Ns) 1,000 mls @ 125 mls/hr IV .Q8H [facility] Stop: 04/10/24 17:14 Last Admin: 04/10/24 03:54 Dose: 125 mls/hr Lorazepam (Lorazepam 0.5 Mg Tablet) 2 mg PO BID [facility] Stop: 04/14/24 20:59 Last Admin: 04/11/24 09:07 Dose: 2 mg Olanzapine (Olanzapine 2.5 Mg Tablet) 2.5 mg PO QDAY [facility] Stop: 05/10/24 08:59 Last Admin: 04/11/24 09:10 Dose: 2.5 mg Pharmacy Consult (Pharmacy To Dose Warfarin) 1 each PO QDAY PRN PRN Reason: CONSULT Stop: 05/10/24 10:44 Quetiapine Fumarate (Quetiapine Fumarate 25 Mg Tablet) 50 mg PO X1 ONE Stop: 04/09/24 17:40 Last Admin: 04/09/24 19:26 Dose: 50 mg Quetiapine Fumarate (Quetiapine Fumarate 25 Mg Tablet) 25 mg PO QDAY [facility] Stop: 05/10/24 08:59 Last Admin: 04/11/24 09:10 Dose: 25 mg Quetiapine Fumarate (Quetiapine Fumarate 25 Mg Tablet) 25 mg PO QDAY [facility] Stop: 05/12/24 08:59 Quetiapine Fumarate (Quetiapine Fumarate 25 Mg Tablet) 25 mg PO X1 ONE Stop: 04/11/24 12:16 Last Admin: 04/11/24 12:20 Dose: 25 mg Quetiapine Fumarate (Quetiapine Fumarate 25 Mg Tablet) 25 mg PO X1 ONE Stop: 04/11/24 12:13 Warfarin Sodium (Warfarin 1 Mg Tablet) 7.5 mg PO QDAY@1200 [facility]JI Stop: 04/24/24 11:59 Warfarin Sodium (Warfarin 5 Mg Tablet) 10 mg PO 1200 [facility] Stop: 04/10/24 12:01 Last Admin: 04/10/24 11:56 Dose: 10 mg Warfarin Sodium (Warfarin 5 Mg Tablet) 10 mg PO 1200 ONE Stop: 04/11/24 12:01 Last Admin: 04/11/24 12:25 Dose: 10 mg Assessment & Plan Plan Patient is a 78-year-old male with advanced Alzheimer's dementia, COPD on home O2, colon cancer s/p colostomy, CHF (unknown EF) who was admitted for workup/management of chronic diarrhea. Due to worsening Alzheimer's, patient has become more aggressive at home as well as during admission, therefore neurology was consulted. #Advanced Alzheimer's dementia Dorina love DC'd. Continue Seroquel, donepezil, Ativan, memantine, sertraline. Recommend to continue home olanzapine One-to-one sitter Follow up in outpatient neuro clinic #Stage IV colon cancer's s/p colostomy #Chronic diarrhea #BALDO, improved #A-fib #Prediabetes #Thrombocytopenia #S/p ground-level fall #Generalized weakness #COPD on home O2 #CHF (unknown EF) As per primary team Attending Provider Attestation/Addendum I personally did the virtual evaluation with the resident at the bedside and I agree with his findings, assessment and plan of care. Will continue with current management including as needed antipsychotics for behavioral disturbances associated with progressive dementia. Once the mood symptoms resolved, patient would need placement and local rehab as family is not able to care for him.
[2024-04-11] MEDS: HALOPERIDOL LACT INJ 5 MG/ML VIAL 2.5 MG IV (14:25)
--- NOTE | 2024-04-11 15:16 | PC.SS ---
Addendum entered by BRANNON Campos 04/11/24 16:13: Spoke with Silvia at [facility], informs they will need to review patient's medications before agreeing to accept the patient for placement. Addendum entered by BRANNON Campos 04/11/24 16:10: Received call from [facility] water valve repairer, Moises Palmer who informs [facility] level 2 to be closed. Original Note: Rounding note: patient had an episode of agitation earlier today, nicole salvador was called earlier today. Patient pending three midnights for SNF placement.
--- NOTE | 2024-04-11 15:25 | EKG_ITS ---
[facility] Test Date: 2024-04-11 Pat Name: MARCIA BLACKMAN [facility] Gender[facility] Copy Room Technician: LEON : [id number] Requested By: Jessika Ulloa Order Number: [id number] Reading MD: Jessika Ulloa Measurements Intervals [place] Rate: 58 P: 96 [place]: 345 QRS: 22 QRSD: 98 T: 53 QT: 404 QTc: 400 Interpretive Statements SINUS BRADYCARDIA WITH MARKED SINUS ARRHYTHMIA WITH FIRST DEGREE AV BLOCK LOW QRS VOLTAGE IN EXTREMITY LEADS [QRS DEFLECTION < 0.5 mV IN LIMB LEADS] Compared to ECG 03/17/2023 11:36:18 First degree AV block now present Low QRS voltage now present Atrial-paced complex(es) or rhythm no longer present T-wave abnormality no longer present /store/S0/[id number].pdf
[2024-04-11] MEDS: LORazepam 0.5 MG TABLET 1 MG PO (20:06)
[2024-04-11] MEDS: DONEPEZIL HCL 5 MG TABLET 10 MG PO (20:07)
[2024-04-12] VITALS (10 sets, daily range): BP systolic 121–149; BP diastolic 74–91; PULSE 13–77; RESP 17–96; TEMP 36.1–36.5; O2SAT 90–96
[2024-04-12 05:41] LABS: Basophils % (Auto) 1 % (0-2.5); Eosinophils # (Auto) 0.3 Thou/mm3 (0.0-0.5); Eosinophils % (Auto) 5 % (0-10); Hemoglobin 11.9 g/dL (13.5-16.0); Immature Granulocytes % (Auto) 0 % (0-0); Immature Granulocytes Auto 0.02 Thou/mm3 (0.00-0.00); Lymphocytes # (Auto) 0.9 Thou/mm3 (1.0-4.8); Lymphocytes % (Auto) 16 % (10-50); Mean Corpuscular HGB Conc 30.5 g/dl (31.0-37.0); Mean Corpuscular Hemoglobin 27.1 pg (25.0-35.0); Mean Corpuscular Volume 89 fL (80-100); Monocytes # (Auto) 0.6 Thou/mm3 (0.0-0.8); Monocytes % (Auto) 10 % (0-12); Neutrophils # (Auto) 3.8 Thou/mm3 (1.8-7.7); Neutrophils % (Auto) 68 % (37-80); Nucleated Red Blood Cell % 0 /100 WBC (0); Platelet Count 143 Thou/mm3 (140-440); RDW Standard Deviation 60.2 fL (35.1-43.9); Red Blood Count 4.39 Miln/mm3 (4.50-5.90); White Blood Count 5.6 Thou/mm3 (3.8-10.6)
[2024-04-12 05:51] LABS: INR 1.7 (0.9-1.3); Prothrombin Time 17.9 Seconds (9.0-12.2)
[2024-04-12 06:00] LABS: Alanine Aminotransferase 15 U/L (10-49); Albumin, Serum 3.7 gm/dL (3.4-4.8); Albumin/Globulin Ratio 1.3 (1.2-2.2); Alkaline Phosphatase 94 U/L (46-116); Anion Gap 2 (7-16); Aspartate Amino Transferase 24 U/L (0-34); BUN/Creatinine Ratio 18 Ratio (12-20); Bilirubin,Total 0.4 mg/dL (0.3-1.2); Blood Urea Nitrogen 22 mg/dL (9-23); Calcium (Corrected) 9.2 mg/dL (8.5-10.1); Carbon Dioxide 34.9 mMol/L (20.0-31.0); Chloride 102 mMol/L (98-107); Creatinine (Component) 1.2 mg/dL (0.6-1.3); Estimated Creatinine Clearance 63.6 mL/min (>60); Globulin 2.8 gm/dL (2.3-3.5); Glucose 96 mg/dL (74-106); Magnesium 2.1 mg/dL (1.6-2.6); Osmolality,Calculated 280 (275-295); Phosphorous 2.6 mg/dL (2.4-5.1); Potassium 4.4 mMol/L (3.4-5.1); Sodium 139 mMol/L (136-145); Total Protein 6.5 gm/dL (5.7-8.2); eGFR > 60 See Note
[2024-04-12] MEDS: MEMANTINE HCL 5 MG TABLET 10 MG PO (07:47)
[2024-04-12] MEDS: SERTRALINE HCL 25 MG TABLET 100 MG PO (07:47)
[2024-04-12] MEDS: BUMETANIDE 0.5 MG TABLET 1 MG PO (07:48)
[2024-04-12] MEDS: PANTOPRAZOLE 40 MG TABLET PO (07:48)
[2024-04-12] MEDS: CHOLECALCIFEROL (Vitamin D3) 1,000 IU TABLET 2000 IU PO (07:49)
[2024-04-12] MEDS: QUEtiapine FUMARATE 25 MG TABLET 50 MG PO (07:49)
[2024-04-12] MEDS: LORazepam 0.5 MG TABLET 1 MG PO ×2 (07:49→21:22)
--- NOTE | 2024-04-12 07:53 | PC.NURSE ---
Pt in good spirits and compliant, AM medication given at this time.
--- NOTE | 2024-04-12 08:52 | PC.SS ---
Addendum entered by BRANNON Campos 04/12/24 12:07: Silvia at [facility] informs they are not able to accept the patient due to medications. Addendum entered by BRANNON Campos 04/12/24 10:48: Spoke with Silvia at [facility] informs they are to review the med list with their DON and possibility of an on-site visit to consider for placement. Bed side nurse Vani kamara. Updated resident Dr. Tijerina. Original Note: Sent medication list to [facility] via [employer] as they are considering patient for placement.
[2024-04-12] MEDS: WARFARIN 5 MG TABLET 7.5 MG PO (12:40)
--- NOTE | 2024-04-12 19:39 | ESPR_ITS ---
Documentation for date of: 04/12/24 Subjective Subjective Interval history: No overnight events. Patient seen and examined at bedside with one-on-one sitter. Hemodynamically stable.AAox2. Still speaking clearly currently. Patient denies any acute symptoms. Neurology recommends to stop aripiprazole. She recommended to continue his other neuro medications. Medicine team stopped aripiprazole. Exam Vital Signs Temp Pulse Resp BP Pulse Ox O2 Del Method O2 Flow Rate 97.7 F 72 17 149/91 H 93 L Room Air 2 04/12/24 16:00 04/12/24 16:00 04/12/24 16:00 04/12/24 16:00 04/12/24 16:00 04/12/24 16:00 04/11/24 12:00 Narrative Exam Constitutional: calm, conversational, well-nourished, in no acute distress, laying in bed sitter next to him. HEENT: NCAT, EOMI, reactive round pupils b/l, patent nares b/l, dry mucous membranes, on 2L n/C Lung: CTAB, no wheezing, no rhonchi, no crackles Heart: Regular S1S2, no murmurs, gallops, or rubs Abdomen: Soft, non-tender, normoactive bowel sounds present. No rebounding. No masses. Extremities: No cyanosis, clubbing, no edema of b/l legs, 2+dorsalis pedis pulses present b/l Neurologic: No focal sensory or motor deficits noted, AOx2, appropriate affect Skin: Warm, dry, no lesions or rashes noted Objective Labs 04/13/24 04:15 04/13/24 04:15 Labs: Laboratory Results - last 24 hr 04/12/24 04:52 WBC 5.6 RBC 4.39 L Hgb 11.9 L Hct 39.0 L MCV 89 MCH 27.1 MCHC 30.5 L RDW Std Deviation 60.2 H Plt Count 143 D Neut % (Auto) 68 Lymph % (Auto) 16 [place] % (Auto) 10 Eos % (Auto) 5 Baso % (Auto) 1 Neut # (Auto) 3.8 Lymph # (Auto) 0.9 L [place] # (Auto) 0.6 Eos # (Auto) 0.3 Baso # (Auto) 0.0 Immature Gran # (Auto) 0.02 H Absolute Nucleated RBC 0.00 Immature Gran % 0 Nucleated RBC % 0 PT 17.9 H D INR 1.7 H Sodium 139 Potassium 4.4 Chloride 102 Carbon Dioxide 34.9 H Anion Gap 2 L BUN 22 Creatinine 1.2 Estim Creat Clear Calc 63.6 eGFR > 60 BUN/Creatinine Ratio 18 Glucose 96 Calculated Osmolality 280 Calcium 9.0 Corrected Calcium 9.2 Phosphorus 2.6 Magnesium 2.1 Total Bilirubin 0.4 AST 24 ALT 15 Alkaline Phosphatase 94 Total Protein 6.5 Albumin 3.7 Globulin 2.8 Albumin/Globulin Ratio 1.3 ABG Interpretation ABG results: 04/10/24 10:59 VBG pH 7.40 VBG pCO2 50 VBG pO2 56 VBG Base Excess 5 H Quality Measures Quality Measures VTE prophylaxis Advance care planning discussed with:: patient Assessment & Plan Assessment Current Active Medications: Generic Name Dose Route Start Last Admin Trade Name Freq PRN Reason Stop Dose Admin Acetaminophen 650 mg 04/09/24 17:13 Acetaminophen 325 Mg Tablet PO 05/09/24 17:12 Q6H PRN Fever >101.5 Acetaminophen 650 mg 04/09/24 17:13 Acetaminophen 325 Mg Tablet PO 05/09/24 17:12 Q6H PRN PAIN SCALE 1-3 (mild Albuterol/Ipratropium 3 ml 04/09/24 18:11 Albuterol/Ipratropium (Duoneb) Rt Kayleen 3 Ml Nebu INH 05/09/24 18:10 Q2HR PRN SHORTNESS OF BREATH OR WHEEZE Bumetanide 1 mg 04/10/24 09:00 04/12/24 07:48 Bumetanide 0.5 Mg Tablet PO 05/10/24 08:59 1 mg QDAY SAJI Administration Donepezil HCl 10 mg 04/09/24 21:00 04/11/24 20:07 Donepezil Hcl 5 Mg Tablet PO 05/09/24 20:59 10 mg HS SAJI Administration Lorazepam 1 mg 04/11/24 21:00 04/12/24 07:49 Lorazepam 0.5 Mg Tablet PO 04/16/24 20:59 1 mg BID SAJI Administration Memantine 10 mg 04/10/24 09:00 04/12/24 07:47 Memantine Hcl 5 Mg Tablet PO 05/10/24 08:59 10 mg QDAY SAJI Administration Ondansetron HCl 4 mg 04/09/24 17:13 Ondansetron Inj 2 Mg/Ml Inj 2 Ml IV 05/09/24 17:12 Q6H PRN NAUSEA OR VOMITING Protocol Pantoprazole Sodium 40 mg 04/09/24 17:30 04/12/24 07:48 Pantoprazole 40 Mg Tablet PO 05/09/24 17:29 40 mg QDAY SAJI Administration Quetiapine Fumarate 50 mg 04/12/24 09:00 04/12/24 07:49 Quetiapine Fumarate 25 Mg Tablet PO 05/12/24 08:59 50 mg QDAY SAJI Administration Sertraline HCl 100 mg 04/10/24 09:00 04/12/24 07:47 Sertraline Hcl 25 Mg Tablet PO 05/10/24 08:59 100 mg QDAY SAJI Administration Vitamin D 2,000 iu 04/10/24 09:00 04/12/24 07:49 Cholecalciferol (Vitamin D3) 1,000 Iu Tablet PO 05/10/24 08:59 2,000 iu QDAY SAJI Administration Warfarin Sodium 7.5 mg 04/12/24 12:00 04/12/24 12:40 Warfarin 5 Mg Tablet PO 04/26/24 11:59 7.5 mg QDAY@1200 SAJI Administration Plan 78-year-old male patient with history of COPD on home oxygen, asthma, CHF, terminal colon cancer since 2019, advanced Alzheimer disease, was brought to the ED on 04/09/2024 by his due to new onset diarrhea x 2 months, worsening this week. He has been progressively aggressive with . In the ED, patient was hemodynamically stable with creatinine 2.0, GFR 34, lactic acid 2.6. Alkaline phosphatase 135. Found to have BALDO, admitted for management of BALDO and assistance with placement to facility. #Acute on chronic encephalopathy #Dementia Most likely secondary to worsening dementia versus medication induced. He is still ANO x 2. CT head negative. Electrolytes within normal limits. He is no longer presenting with agression currently. Plan: -Consulted Neurology; appreciate recommendations- discontinue Abilify; Continue Seroquel, donepezil, Ativan, memantine, sertraline, olanzapine. One-to-one sitter. Follow up in outpatient neuro clinic -Seroquel, donepezil, Ativan, memantine, sertraline -requires placement at SNF as is unable to care for patient; web content & social media manager on board for placement -Frequent reorientation -Follow-up CMP #Stage IV colon cancer #Chronic diarrhea 2/2 above- resolving DDx: Infectious diarrhea, diverticulosis, Colon cancer with possible metastasis Patient presented in the ED for high volume diarrhea (foul-smelling and seedy) in setting of colon cancer history. Patient likely has peptic ulcer disease as he had nausea,vomiting, and upset stomach. Colon cancer with mets to the stomach or esophagus possible in setting of low food intake and ongoing weight loss. No hx of recent travel or sick contacts. WBC cultures, stool cultures, Stool occult blood negative. Blood cultures negative prelim Plan: -Giardia pending #S/p ground level fall #Generalized weakness Low suspicion of brain injury in setting of patient appears fully aware and oriented x2. No signs of active confusion or disorientation. CT head: Negative for acute hemorrhage, mass effect or midline shift. Cervixal Spine CT: No acute cervical fracture. -no need for treatment/intervention at this moment -will closely monitor. -one-on one sitter #Atrial fibrillation Patient has a history of atrial fibrillation followed by Dr. Dacosta. [id number] 2. Has bled of 2. -Warfarin 7.5mg -Follow-up PT, PTT and INR #Pre-diabetes #Hyperglycemia, resolved Controlled Blood glucose was elevated on ED presentation. Glucose of 100. A1c of 5.9%. -F/up CMP in am #COPD on home oxygen #Asthma #Metabolic acidosis History of both COPD and asthma. Likely chronic CO2 retainer from COPD hx. On home O2 per O2 sat 98% on 02. -Goal O2: 88-92% -O2 as needed -duonebs prn #CHF (unknown EF) Chronic Patient has history of CHF. -Bumetanide 1mg -strict I & O, weight checks, fluid restrict to 1500cc daily Additional Chronic conditions: #Terminal colon cancer since 2018 #S/p colonic resection, seen by Dr. Somers and Dr. Zapata in 2022 #Advanced Alzheimer disease - ativan 1mg daily, memantine 10mg 2/day, seroquel 50mg daily #BALDO-resolved #Thrombocytopenia, resolved #Lactic acidosis, resolved Dispo: Admitted for BALDO, resolved. Pending placement to SNF. Discussed case with my attending Dr. Pathak. Thank you, Raven Tijerina, PGY-2 Attending Provider Attestation/Addendum Face to face evaluation was performed by me. I have personally seen and examined the patient. I discussed the assessment and plan with the entire medicine team. I reviewed available medical records, imaging studies, laboratory results. I agree with the above subjective data, objective findings, assessment and plan except as corrected by me or noted below Generalized weakness History of stage IV colon cancer, s/p resection Advanced dementia, likely Alzheimer's type Chronic heart failure, seems to be not in exacerbation at this point, unknown previous ejection fraction COPD and chronic hypoxic respite failure on home oxygen Acute kidney injury due to dehydration prerenal etiology cannot rule out acute tubular necrosis chronic diarrhea Chronic anticoagulation with warfarin -Seems to be better in terms of agitation/anxiety, no sitter at bedside -Continue current management, monitor labs/vitals/clinical course closely. Continue dicyclomine -Bumetanide -Current he has olanzapine and quetiapine was prescribed, personally I would prefer him to get one of them. Will probably go with quetiapine Continue warfarin INR goal is above 2 in his case probably 2?2.5 is the goal Would definitely recommend him to be placed at intermediate facility for nursing care/24-hour supervision, looks like family will not be able to provide appropriate care for this unfortunate gentleman
[2024-04-12] MEDS: DONEPEZIL HCL 5 MG TABLET 10 MG PO (21:22)
[2024-04-13] VITALS: BP 134/72; PULSE 63; RESP 18; TEMP 36.2; O2SAT 92
--- NOTE | 2024-04-13 01:13 | PD.NEUROPROG ---
Documentation for date of: 04/12/24 Subjective Subjective Interval history: Patient is in [facility] with one-to-one supervision. Patient's mental status remained stable, no agitation or aggression reported throughout the day. Exam - Neurology Vital Signs Temp Pulse Resp BP Pulse Ox O2 Del Method O2 Flow Rate 97.2 F 63 18 134/72 H 92 L Room Air 2 04/13/24 00:00 04/13/24 00:00 04/13/24 00:00 04/13/24 00:00 04/13/24 00:00 04/13/24 00:00 04/11/24 12:00 Narrative Exam GENERAL APPEARANCE: Well hydrated, well-nourished in no acute distress. HEENT: Normocephalic, atraumatic, extraocular movements intact. Pupils: Equal reacting to light and accommodation NECK: Supple, no JVD or bruits. CARDIOVASULAR: Heart: S1, S2 heard, regular without S3-S4 or murmur no rubs or gallops. LUNGS/CHEST: Clear to auscultation bilaterally. No rails, rhonchi, or wheezing. Normal inspection. ABDOMEN: Soft, nontender, with normal bowel sounds. No pulsatile masses. No rebound, rigidity, or guarding. Normal inspection and palpation. EXTREMITIES: Normal inspection and palpation. No edema, clubbing or cyanosis. SKIN: Warm and dry without rashes. Normal inspection. MUSCULOSKELETAL: No cervical, thoracic, lumbar or midline bony tenderness. Normal inspection. NEURO: Alert, awake and oriented x1. Cranial nerves: II through XII grossly intact. Speech and language: Normal with no dysarthria or dysphasia. Motor system: Tone and bulk: Normal: Strength: 5 out of 5 in all 4 extremities; No pronator drift noted. Deep tendon reflexes: 2+ bilaterally symmetrical. Plantar reflex: Downgoing bilaterally. Sensory system: Intact to all modalities of sensation bilaterally. Coordination: Intact to [id number] and [id number]-catn test bilaterally. No ataxia, no dysmetria, or dysdiadochokinesia noted. No intention tremors noted. Gait: Not tested. No signs of meningeal irritation noted. PSYCHIATRIC: Normal mood and affect. Objective Labs 04/12/24 04:52 04/12/24 04:52 Labs: Laboratory Results - last 24 hr 04/12/24 04:52 WBC 5.6 RBC 4.39 L Hgb 11.9 L Hct 39.0 L MCV 89 MCH 27.1 MCHC 30.5 L RDW Std Deviation 60.2 H Plt Count 143 D Neut % (Auto) 68 Lymph % (Auto) 16 [place] % (Auto) 10 Eos % (Auto) 5 Baso % (Auto) 1 Neut # (Auto) 3.8 Lymph # (Auto) 0.9 L [place] # (Auto) 0.6 Eos # (Auto) 0.3 Baso # (Auto) 0.0 Immature Gran # (Auto) 0.02 H Absolute Nucleated RBC 0.00 Immature Gran % 0 Nucleated RBC % 0 PT 17.9 H D INR 1.7 H Sodium 139 Potassium 4.4 Chloride 102 Carbon Dioxide 34.9 H Anion Gap 2 L BUN 22 Creatinine 1.2 Estim Creat Clear Calc 63.6 eGFR > 60 BUN/Creatinine Ratio 18 Glucose 96 Calculated Osmolality 280 Calcium 9.0 Corrected Calcium 9.2 Phosphorus 2.6 Magnesium 2.1 Total Bilirubin 0.4 AST 24 ALT 15 Alkaline Phosphatase 94 Total Protein 6.5 Albumin 3.7 Globulin 2.8 Albumin/Globulin Ratio 1.3 ABG Interpretation ABG results: 04/10/24 10:59 VBG pH 7.40 VBG pCO2 50 VBG pO2 56 VBG Base Excess 5 H Assessment & Plan Additional Assessment & Plan Additional Plan: Ptient is a 78-year-old male with advanced Alzheimer's dementia, COPD on home O2, colon cancer s/p colostomy, CHF (unknown EF) who was admitted for workup/management of chronic diarrhea. Due to worsening Alzheimer's, patient has become more aggressive at home as well as during admission, therefore neurology was consulted. #Advanced Alzheimer's dementia Continue to monitor his mental status and behaviors Dorina was DC'd. Continue Seroquel, donepezil, Ativan, memantine, sertraline. Recommend to continue home olanzapine One-to-one sitter #Stage IV colon cancer's s/p colostomy #Chronic diarrhea #BALDO, improved #A-fib #Prediabetes #Thrombocytopenia #S/p ground-level fall #Generalized weakness #COPD on home O2 #CHF (unknown EF) As per primary team
[2024-04-13 03:46] VITALS: BP 138/69; PULSE 52; RESP 14; TEMP 36.2; O2SAT 92
[2024-04-13 05:46] LABS: Basophils % (Auto) 1 % (0-2.5); Eosinophils # (Auto) 0.2 Thou/mm3 (0.0-0.5); Eosinophils % (Auto) 4 % (0-10); Hematocrit 39.5 % (41.0-53.0); Hemoglobin 12.2 g/dL (13.5-16.0); Immature Granulocytes % (Auto) 0 % (0-0); Immature Granulocytes Auto 0.01 Thou/mm3 (0.00-0.00); Lymphocytes # (Auto) 1.1 Thou/mm3 (1.0-4.8); Lymphocytes % (Auto) 19 % (10-50); Mean Corpuscular HGB Conc 30.9 g/dl (31.0-37.0); Mean Corpuscular Hemoglobin 26.9 pg (25.0-35.0); Mean Corpuscular Volume 87 fL (80-100); Monocytes # (Auto) 0.5 Thou/mm3 (0.0-0.8); Monocytes % (Auto) 9 % (0-12); Neutrophils # (Auto) 3.9 Thou/mm3 (1.8-7.7); Neutrophils % (Auto) 68 % (37-80); Nucleated Red Blood Cell % 0 /100 WBC (0); Platelet Count 143 Thou/mm3 (140-440); RDW Standard Deviation 58.1 fL (35.1-43.9); Red Blood Count 4.54 Miln/mm3 (4.50-5.90); White Blood Count 5.8 Thou/mm3 (3.8-10.6)
[2024-04-13 05:50] LABS: INR 2.1 (0.9-1.3); Prothrombin Time 21.7 Seconds (9.0-12.2)
[2024-04-13 06:13] LABS: Alanine Aminotransferase 26 U/L (10-49); Albumin, Serum 3.7 gm/dL (3.4-4.8); Albumin/Globulin Ratio 1.2 (1.2-2.2); Alkaline Phosphatase 105 U/L (46-116); Anion Gap 4 (7-16); Aspartate Amino Transferase 39 U/L (0-34); BUN/Creatinine Ratio 19 Ratio (12-20); Bilirubin,Total 0.4 mg/dL (0.3-1.2); Blood Urea Nitrogen 23 mg/dL (9-23); Calcium 9.2 mg/dL (8.3-10.6); Calcium (Corrected) 9.4 mg/dL (8.5-10.1); Chloride 101 mMol/L (98-107); Creatinine (Component) 1.2 mg/dL (0.6-1.3); Estimated Creatinine Clearance 63.6 mL/min (>60); Glucose 83 mg/dL (74-106); Osmolality,Calculated 278 (275-295); Potassium 4.3 mMol/L (3.4-5.1); Sodium 138 mMol/L (136-145); Total Protein 6.7 gm/dL (5.7-8.2); eGFR > 60 See Note
[2024-04-13 06:43] VITALS: PULSE 55; RESP 18; RESP 93; O2SAT 93
[2024-04-13 08:00] VITALS: BP 141/78; PULSE 71; RESP 18; TEMP 36.4; O2SAT 93
[2024-04-13] MEDS: LORazepam 0.5 MG TABLET 1 MG PO (08:41)
[2024-04-13 08:42] VITALS: BP 141/78; PULSE 71
[2024-04-13] MEDS: MEMANTINE HCL 5 MG TABLET 10 MG PO (08:42)
[2024-04-13] MEDS: BUMETANIDE 0.5 MG TABLET 1 MG PO (08:42)
[2024-04-13] MEDS: QUEtiapine FUMARATE 25 MG TABLET 50 MG PO (08:42)
[2024-04-13] MEDS: SERTRALINE HCL 25 MG TABLET 100 MG PO (08:43)
[2024-04-13] MEDS: PANTOPRAZOLE 40 MG TABLET PO (08:43)
[2024-04-13] MEDS: CHOLECALCIFEROL (Vitamin D3) 1,000 IU TABLET 2000 IU PO (08:43)
--- NOTE | 2024-04-13 09:04 | PC.SS ---
Addendum entered by BRANNON Campos 04/13/24 12:19: MACHINING ENGINEER met at bed side with patient and patient's , Sarah. They are agreeable with d/c to [facility]. Patient's , Sarah to transport via private vehicle at 6pm. Libby at [facility] is aware. Bed side nurse Vani aware. Addendum entered by BRANNON Campos 04/13/24 10:30: Attempted contact with patent's son, Maximiliano Jiménez , however unavailable. Voicemail provided. Addendum entered by BRANNON Campos 04/13/24 10:27: Was informed by Libby that [facility] is agreeable with accepting the patient today after 2pm. Attempted to contact patient's Sarah to make aware if agreeable, however not available and left her a voicemail. Notified bed side nurse Sadie regarding placement, informs patient's to come by this morning. Original Note: Contacted Libby from [facility] [place] to identify if they are able to accept the patient for placement as he is ready for discharge. Libby informs they may be having a male resident discharge today and will call account underwriter back to inform if able to accept the patient.
[2024-04-13 11:51] VITALS: BP 134/72; PULSE 63; RESP 17; TEMP 36.4; O2SAT 97
[2024-04-13] MEDS: WARFARIN 5 MG TABLET 7.5 MG PO (12:14)
--- NOTE | 2024-04-13 15:19 | PD.RESDS ---
Planned Discharge Date 04/13/24 DS: Providers Provider Date of admission: 04/09/24 17:24 Primary care physician: Newton Dunn MD Admitting Provider: Janine Rangel DO Attending Provider on Admission: Prosper Pathak MD Consults: 04/11/24 10:48 Consult to Neurology / Tele-Neurology Routine Comment: Medications-polypharmacy Consulting Provider: Cosme Deleon Attending Provider on DC: Raven Tijerina MD Discharging Provider: Raven Tijerina MD DS: Diagnosis Problem List Completed Was Problem List Reviewed/Reconciled?: Yes Hospital Course Hospital Course Hospital course: 78-year-old male patient with history of COPD on home oxygen, asthma, CHF, terminal colon cancer since 2019, advanced Alzheimer disease, was brought to the ED on 04/09/2024 by his due to new onset diarrhea x 2 months, worsening this week. He has been progressively aggressive with . In the ED, patient was hemodynamically stable with creatinine 2.0, GFR 34, lactic acid 2.6. CT head negative. Cervixal Spine CT: No acute cervical fracture. Alkaline phosphatase 135. Found to have BALDO, admitted for management of BALDO and assistance with placement to facility. Neurology was consulted and recommended to discontinue Abilify, continue Seroquel, donepezil, Ativan, memantine, sertraline, olanzapine. Neurology also recommended one-to-one sitter and follow up in outpatient neurology clinic. Seroquel, donepezil, Ativan, memantine, sertraline were given with appropriate dose modification. Patient rdequire placement to SNF as was unable to care for the patient. Frequent orientation of patient was provided with one-on-one sitter. No workup needed for Diarrhea as it was self-limited and resolved with hydration. WBC cultures, stool cultures, Stool occult blood negative. Warfarin 7.5mg was given for history of A-fib as he was on it per home med reconciliation. He is on home warfarin as he is unable to afford other anticoagulants for A-fib. Patient is stable. Diarrhea has resolved. He remains ANO x 2 per baseline and is aware that he will be discharged to SNF. will pepper picker patient this evening and transport him to SNF ([facility] facility). Patient was advised to take lorazepam 1 mg tablet once daily as needed for anxiety, quetiapine 25 mg tabs x2 for total of 50 mg daily at night for anxiety. He will continue home medications as previously prescribed, except the following will be stopped: home dose lorazepam 2 mg tablet and Zyprexa(olanzapine) 2.5 mg tablet. He was informed to follow-up with primary care provider in 1 to 2 weeks. He must also follow-up with outpatient neurology clinic in 1 to 2 weeks. If symptoms worsen, he will return to the ED. Check INR on 04/16/2024, for target therapeutic range. #Acute on chronic encephalopathy #Dementia #Advanced Alzheimer disease #Stage IV colon cancer #Chronic diarrhea 2/2 above- resolving #S/p ground level fall #Generalized weakness-stable #Atrial fibrillation #Pre-diabetes #Hyperglycemia, resolved #COPD on home oxygen #Asthma #Metabolic acidosis #CHF (unknown EF) #Terminal colon cancer since 2018 #S/p colonic resection, seen by Dr. Somers and Dr. Zapata in 2022 #BALDO-resolved #Thrombocytopenia, resolved #Lactic acidosis, resolved Discussed case with my attending Dr. Pathak. Thank you, Raven Tijerina, PGY-2 Time Spent with Patient Time attestation: Total time spent providing and/or coordinating discharge services: Time spent: Greater than 30 minutes Exam Vital Signs Temp Pulse Resp BP Pulse Ox O2 Del Method O2 Flow Rate 97.6 F 63 17 134/72 H 97 Room Air 2 04/13/24 11:51 04/13/24 11:51 04/13/24 11:51 04/13/24 11:51 04/13/24 11:51 04/13/24 11:51 04/11/24 12:00 Narrative Exam Constitutional:conversational, well-nourished, in no acute distress. HEENT: NCAT, EOMI, reactive round pupils b/l, patent nares b/l, dry mucous membranes, on 2L n/C Lung: CTAB, no wheezing, no rhonchi, no crackles Heart: Regular S1S2, no murmurs, gallops, or rubs Abdomen: Soft, non-tender, normoactive bowel sounds present. No rebounding. No masses. Extremities: No cyanosis, clubbing, no edema of b/l legs, 2+dorsalis pedis pulses present b/l Neurologic: No focal sensory or motor deficits noted, AOx2, appropriate affect Skin: Warm, dry, no lesions or rashes noted Discharge Plan Plan Patient Disposition: Xfer Skilled Nsg Fac (SNF) Care Plan Goals: Please take lorazepam 1 mg tablet once daily as needed for anxiety. Please take quetiapine 25 mg tabs x2 for total of 50 mg daily at night for anxiety. Please continue home medications as previously prescribed, except the following: Stop home dose lorazepam 2 mg tablet. Stop Zyprexa(olanzapine) 2.5 mg tablet. Please stop taking quetiapine 25 mg tablet once daily. Please follow-up with primary care provider in 1 to 2 weeks. If symptoms worsen, please return to the ED. Check INR on 04/16/2024. INR is uptrending currently at 2.1. Will consider to bridge patient's warfarin. Patient is currently not in A-fib, therefore okay to not be within therapeutic range INR at the moment. Follow up in outpatient neuro clinic Prescriptions/Referrals Prescriptions/Med Rec: New quetiapine 25 mg Tablet 50 mg PO HS 30 Days Qty: 60 0RF lorazepam 0.5 mg Tablet 1 mg PO BID 30 Days Qty: 120 0RF Continued donepezil [Aricept] 10 mg tablet 10 mg PO HS sertraline 100 mg Tablet 100 mg PO QDAY dicyclomine 20 mg tablet 20 mg PO BID warfarin 5 mg tablet 7.5 mg PO QDAY Hold Instructions: Resume on 09/10/21. RESUME TOMORROW 09/10/21 bumetanide 1 mg tablet 1 mg PO QDAY cholecalciferol (vitamin D3) [Vitamin D3] 50 mcg (2,000 unit) Tablet 50 mcg PO QDAY memantine 10 mg tablet 10 mg PO 1XD Discontinued lorazepam 2 mg tablet 2 mg PO BID Hold Instructions: Resume on 09/10/21. RESUME TOMORROW 09/10 quetiapine 25 mg Tablet 25 mg PO QDAY olanzapine [Zyprexa] 2.5 mg Tablet 2.5 mg PO QDAY No Action quetiapine 25 mg tablet 25 mg PO ONCE HS MDD 2 tablets PRN (Reason: sleep) Qty: 10 0RF lorazepam [Ativan] 1 mg tablet 1 mg PO BID PRN (Reason: agitation) Qty: 10 0RF Referrals: Newton Dunn MD [Primary Care Provider] - Patient/Caregiver Discharge Instructions Print Language: Occitan Stand Alone Forms: [facility] Award Info., Patient Portal Info Letter Discharge Order Discharge Orders: Discharge (Routine); Ordered 04/13/24 Ordered By: Prosper (HOSPITALIST) Lawson Quality Discharge Quality Measures VTE prophylaxis MD Attestestation MD Attestation Face to face evaluation was performed by me. I have personally seen and examined the patient. I discussed the assessment and plan with the entire medicine team. I reviewed available medical records, imaging studies, laboratory results. I agree with the above subjective data, objective findings, assessment and plan except as corrected by me or noted below Generalized weakness History of stage IV colon cancer, s/p resection Advanced dementia, likely Alzheimer's type Chronic heart failure, seems to be not in exacerbation at this point, unknown previous ejection fraction COPD and chronic hypoxic respite failure on home oxygen Acute kidney injury due to dehydration prerenal etiology cannot rule out acute tubular necrosis chronic diarrhea Chronic anticoagulation with warfarin Seems to be stable for discharge. Remains very high risk for morbidity/mortality due to his conditions looks like diarrhea resolved. Medication adjustments made particularly quetiapine continue and olanzapine held. Follow-up with PCP
[2024-04-17 06:37] LABS: Folate, RBC* 513 ng/mL RBC (>280)
[2024-04-17 06:52] LABS: Giardia Result NOT DETECTED; Norovirus, EIA (Stool)* NOT DETECTED
[2024-04-19 06:21] LABS: Vitamin B1 (Thiamine)* <6 nmol/L (8-30)
== END 2024-04-13 17:01 | disposition skilled nursing facility (03) | DRG 682 ==
LOC: SERX 13:36 → SERHOLD 17:27 → S3SX 23:17
PROVIDERS: Nurse Practitioner Primary Care; Student in an Organized Health Care Education/Training Program; Admitting Provider Internal Medicine; Emergency Provider Internal Medicine Critical Care Medicine; PCP Family Medicine; Visit Provider Internal Medicine
DX: N17.9 Acute kidney failure, unspecified (principal); G92.8 Other toxic encephalopathy; C18.9 Malignant neoplasm of colon, unspecified; F02.82 Dementia in other diseases classified elsewhere, unspecified severity, with psychotic disturbance; E87.20 Acidosis, unspecified; F02.84 Dementia in other diseases classified elsewhere, unspecified severity, with anxiety; Z99.81 Dependence on supplemental oxygen; J44.89 Other specified chronic obstructive pulmonary disease; I50.9 Heart failure, unspecified; G30.9 Alzheimer's disease, unspecified; R73.9 Hyperglycemia, unspecified; E86.0 Dehydration; K52.9 Noninfective gastroenteritis and colitis, unspecified; I11.0 Hypertensive heart disease with heart failure; I48.91 Unspecified atrial fibrillation; R09.02 Hypoxemia; Z79.01 Long term (current) use of anticoagulants; R73.03 Prediabetes; D69.59 Other secondary thrombocytopenia; Z93.3 Colostomy status
CPT/HCPCS: 36415; 70450; 71045; 72125; 80053; 81001; 82140; 82270; 82747; 82803; 83036; 83605; 83735; 84100; 84145; 84425; 85025; 85610; 85730; 87015; 87040; 87045; 87046; 87205; 87329; 87449; 87493; 87811; 87899; 93005; 94664; 99285; J1630; J7030; A9270

== ENCOUNTER 2024-04-14 01:00 | Emergency (ER) | payer MEDICARE, BC, SELFPAY ==
[2024-04-14 01:29] VITALS: BMI 29.1
[2024-04-14 01:30] VITALS: BP 130/68; PULSE 68; RESP 18; TEMP 36.9; O2SAT 95
--- NOTE | 2024-04-14 04:32 | EDNOTE_ITS ---
ED Psych RME/HPI General Chief Complaint: Psychiatric Symptoms Stated Complaint: MENTAL EVALUATION Time Seen by Provider: 04/14/24 04:33 Arrival date/time: 04/14/24 01:00 RME / HPI RME / HPI Narrative: Dr. Lopez?s Main ED Evaluation: 78yo male with pmhx COPD on home oxygen, asthma, CHF, terminal colon cancer since 2019, advanced Alzheimer's disease BIBA from [facility] presents to the ED on a 5150 hold. Per 5150 paperwork, [employer] placed the patient on a hold due to pushing facility staff members and throwing scissors at other patients. Patient does not have any medical complaints at this time. Related Data Home Medications ?Medication ?Instructions ?Recorded ?Confirmed bumetanide 1 mg tablet 1 mg PO QDAY 07/03/21 04/09/24 dicyclomine 20 mg tablet 20 mg PO BID 07/03/21 04/09/24 warfarin 5 mg tablet 7.5 mg PO QDAY 07/03/21 04/09/24 donepezil 10 mg tablet (Aricept) 10 mg PO HS 09/08/21 04/09/24 sertraline 100 mg tablet 100 mg PO QDAY 09/09/21 04/09/24 cholecalciferol (vitamin D3) 50 50 mcg PO QDAY 07/16/22 04/09/24 mcg (2,000 unit) tablet (Vitamin D3) memantine 10 mg tablet 10 mg PO 1XD 04/09/24 04/09/24 Previous Rx's ?Medication ?Instructions ?Recorded quetiapine 25 mg tablet 50 mg (2 x 25 mg) PO HS 30 days 04/12/24 #60 tabs lorazepam 0.5 mg tablet 1 mg (2 x 0.5 mg) PO BID 30 days 04/13/24 #120 tabs Allergies Allergy/AdvReac Type Severity Reaction Status Date / Time Sulfa (Sulfonamide Allergy Severe Hives Verified 04/09/24 12:20 Antibiotics) Review of Systems Review of Systems Systems Reviewed: All systems reviewed, normal except as documented Narrative Review of Systems: GEN: No fever, no chills, no weight loss EYES: No discharge, no visual changes, no pain HEENT: No ear pain, no congestion, no sore throat PULM: No shortness of breath, no cough, no congestion CV: No chest pain, no dyspnea on exertion, no palpitations GI: No nausea, no vomiting, no diarrhea, no pain, no constipation : No frequency, no urgency and no dysuria MUSC/SKEL No joint pain, no back pain SKIN: No rash PSYCH: No hallucinations, no depression HEME/LYMPH: No easy bleeding or bruising tendencies NEURO: No weakness, no headache Past Medical History Past Medical History NEUROLOGIC: Positive Neurological Disorders, Dementia and Alzheimer's Disease; Negative Seizures CARDIAC: Positive Cardiac Disorders, Atrial Fibrillation, Congestive Heart Failure and Hypertension RESPIRATORY: Positive Chronic Obstructive Pulmonary Disease (COPD), Asthma and Pneumonia GASTROINTESTINAL: Positive Gastrointestinal Disorders, Diverticulitis, Diverticulosis, Colorectal Cancer and Obesity GENITOURINARY: Positive Genitourinary Disorders and Renal Disease MUSCULOSKELETAL: Positive Musculoskeletal Disorders and Osteoporosis; Negative Arthritis ENT: Negative Deafness ENDOCRINE: Positive Diabetes Mellitus Type 2; Negative Endocrine Disorders, Diabetes Mellitus Type 1 or Hypothyroidism HEMATOLOGIC: Negative Blood Disorders or Anemia PSYCHO/SOCIAL: Positive Depression and Anxiety OTHER HISTORY: Positive Hospitalization, Chicken Pox, Measles, Mumps, Cancer and Colorectal Cancer; Negative Autoimmune Disease, Shingles, Falls, Blood Transfusions, Anesthesia Reactions, Chemotherapy, Radiation Therapy or MRSA Family History FAMILY HISTORY: Negative Family Psychiatric Problems, Family Respiratory Disorders, Family Cardiac Disorders, Family Gastrointestinal Problems, Family Cancer, Family Surgery or Family Anesthesia Reaction Surgical History SURGICAL: Positive Tonsillectomy, Abdominal Surgery and Bowel Surgery; Negative Joint Replacement or Neurologic Surgery Social History SMOKING STATUS: Unknown if ever smoked SUBSTANCE USE: former substance user ED Exam Narrative Physical exam: GENERAL APPEARANCE: Well hydrated, well nourished, in no acute distress. VITALS: All vitals were reviewed and the pulse ox is 95% on room air which is normal according to my interpretation. HEENT: Normocephalic, atraumatic, EOMI, EACs are patent. There is no bulge or retraction. Throat without erythema or exudate. Moist oromucosa. No jaundice NECK: Supple, no JVD or bruits. CARDIOVASCULAR: Heart regular without S3-S4 or murmur. No rubs or gallops. LUNGS/CHEST: Clear to auscultation bilaterally. No rales, rhonchi, or wheezing. Normal inspection. ABDOMEN: Normal bowel sounds. No pulsatile masses. No rebound, rigidity, or guarding. No incarcerated hernia. Normal inspection. EXTREMITIES: No edema, clubbing, or cyanosis. Intact CSM. Normal inspection and palpation. SKIN: Warm and dry without rashes. Normal inspection and palpation. MUSCULOSKELETAL: No gross deformity, full ROM all extremities. Normal inspection and palpation. NEURO: Alert and oriented x3. Cranial nerves II through XII grossly intact. There are no other motor or sensory deficits noted. PSYCHIATRIC: Normal mood and affect. No psychosis. No SI or HI. Course Quality Measures none Orders Category Date Time Status Alcohol, Blood Medical Stat Lab 04/14/24 04:35 Ordered CBC Stat Lab 04/14/24 04:35 Ordered CMP [Comprehensive Metabolic Panel] Stat Lab 04/14/24 04:35 Ordered Drug Screen,Urine Stat Lab 04/14/24 04:35 Ordered PT [Prothrombin Time with INR] Stat Lab 04/14/24 04:37 Ordered Vital Signs Vital signs: Vital Signs Temperature 98.4 F 04/14/24 01:30 Pulse Rate 68 04/14/24 01:30 Respiratory Rate 18 04/14/24 01:30 Blood Pressure 130/68 04/14/24 01:30 Pulse Oximetry (%) 95 04/14/24 01:30 Oxygen Delivery Method Room Air 04/14/24 01:30 Psych MDM Narrative MDM Narrative:: Scribe Attestation: 04/14/24 - Saloni Langley am scribing for and in the presence of Dr. Lopez Provider Notation: Although this document has been carefully reviewed, there may still be some phonetic and other typographical errors. These errors are purely grammatical due to imperfections in the software program and should not be construed in any way to compromise the substance of the patient's medical care during this visit. ? 6:00 in the morning, the patient is stable, still pending lab results and medical clearance the patient is signed out to Diagnosis: 5150 by law enforcement Aggressive behavior Condition: Stable at signout Patient data External records reviewed:: [facility] previous records (Per chart review, patient was admitted here from 04/09/24-04/13/24 for acute renal failure.) Clinical information provided by:: patient Social determinants that could affect healthcare access:: housing (Pt resided in a SNF prior to being brought in.) Patient has the following chronic illnesses:: COPD on home oxygen, asthma, CHF, terminal colon cancer since 2019, advanced Alzheimer disease How is presenting disease/condition affected by chronic disease/condition?: exacerbated by Evaluation data The following diagnostics were reviewed and interpreted by me:: lab results Lab and/or radiology exams considered but not ordered:: none Interpretation Summary: See above under MDM narrative. Medications / Prescriptions Medications or Prescriptions considered but not ordered:: none Medication administrations:: see above, if any Consultations Consultation(s) initiated? (list below): No Diagnosis Psych Differential Diagnosis: acute psychosis, chronic schizophrenia, bipolar disorder and acute anxiety Most likely diagnosis given after review of the tests above:: Acute psychosis 5150 Admission Indicated Admission indicated?: not indicated Admission Request Was there a request for admission?: No Disposition Plan Disposition Plan: other (specify) (Signed out to the next oncoming provider at 0600.) Discharge Plan Plan Disposition Comment: Stable at signout Prescriptions/Referrals Prescriptions/Med Rec: No Action donepezil [Aricept] 10 mg tablet 10 mg PO HS sertraline 100 mg Tablet 100 mg PO QDAY dicyclomine 20 mg tablet 20 mg PO BID warfarin 5 mg tablet 7.5 mg PO QDAY Hold Instructions: Resume on 09/10/21. RESUME TOMORROW 09/10/21 bumetanide 1 mg tablet 1 mg PO QDAY cholecalciferol (vitamin D3) [Vitamin D3] 50 mcg (2,000 unit) Tablet 50 mcg PO QDAY memantine 10 mg tablet 10 mg PO 1XD quetiapine 25 mg Tablet 50 mg PO HS 30 Days Qty: 60 0RF lorazepam 0.5 mg Tablet 1 mg PO BID 30 Days Qty: 120 0RF Problem List Clinical Impression: Acute psychosis Patient/Caregiver Discharge Instructions Print Language: Swiss
--- NOTE | 2024-04-14 05:40 | PC.NURSE ---
Pt keeps getting up out of bed trying to leave the department through ambulance bay doors. Pt not easily directed and is getting agitated. MD aware.
[2024-04-14] MEDS: LORazepam 2 MG/ML VIAL IM (06:01)
[2024-04-14] MEDS: DiphenhydrAMINE INJ 50 MG/ML VIAL IM (06:01)
[2024-04-14] MEDS: HALOPERIDOL LACT INJ 5 MG/ML VIAL IM (06:01)
--- NOTE | 2024-04-14 06:06 | PD.EDADDENDU ---
Emergency Room Addendum Addendum Narrative: Care assumed from Dr. Lopez (emergency physician). Past medical, surgical, social and family history reviewed. Vitals and home medications reviewed. Results and treatment plan discussed. I will assume the care of the patient at this time and will follow the patient, pending medical clearnece for psych evaluation 0800 Patient is medical cleared for marriage and family social worker evaluation. Patient was seen by marriage and family social worker and deemed fit to be discharge back to facility. Although original facility was not able to accept the patient back another facility connected to the original is. Transportation is aligned for 1100.
--- NOTE | 2024-04-14 06:26 | PC.NURSE ---
Lab at the bedside for blood draw.
[2024-04-14 06:44] LABS: Basophils % (Auto) 1 % (0-2.5); Eosinophils # (Auto) 0.1 Thou/mm3 (0.0-0.5); Eosinophils % (Auto) 2 % (0-10); Hematocrit 36.9 % (41.0-53.0); Hemoglobin 11.5 g/dL (13.5-16.0); Immature Granulocytes % (Auto) 0 % (0-0); Immature Granulocytes Auto 0.01 Thou/mm3 (0.00-0.00); Lymphocytes # (Auto) 0.8 Thou/mm3 (1.0-4.8); Lymphocytes % (Auto) 15 % (10-50); Mean Corpuscular HGB Conc 31.2 g/dl (31.0-37.0); Mean Corpuscular Hemoglobin 26.9 pg (25.0-35.0); Mean Corpuscular Volume 86 fL (80-100); Monocytes # (Auto) 0.5 Thou/mm3 (0.0-0.8); Monocytes % (Auto) 10 % (0-12); Neutrophils # (Auto) 4.1 Thou/mm3 (1.8-7.7); Neutrophils % (Auto) 74 % (37-80); Nucleated Red Blood Cell % 0 /100 WBC (0); Platelet Count 148 Thou/mm3 (140-440); Red Blood Count 4.28 Miln/mm3 (4.50-5.90); White Blood Count 5.5 Thou/mm3 (3.8-10.6)
[2024-04-14 06:57] LABS: INR 2.8 (0.9-1.3); Prothrombin Time 28.1 Seconds (9.0-12.2)
[2024-04-14 07:03] LABS: Alanine Aminotransferase 54 U/L (10-49); Albumin, Serum 3.7 gm/dL (3.4-4.8); Albumin/Globulin Ratio 1.2 (1.2-2.2); Alcohol, Blood Medical < 3.0 mg/dL (0-10.0); Alkaline Phosphatase 124 U/L (46-116); Anion Gap 4 (7-16); Aspartate Amino Transferase 59 U/L (0-34); BUN/Creatinine Ratio 16 Ratio (12-20); Bilirubin,Total 0.3 mg/dL (0.3-1.2); Blood Urea Nitrogen 22 mg/dL (9-23); Calcium 8.9 mg/dL (8.3-10.6); Calcium (Corrected) 9.1 mg/dL (8.5-10.1); Carbon Dioxide 31.5 mMol/L (20.0-31.0); Chloride 101 mMol/L (98-107); Creatinine (Component) 1.4 mg/dL (0.6-1.3); Estimated Creatinine Clearance 54.3 mL/min (>60); Glucose 154 mg/dL (74-106); Osmolality,Calculated 278 (275-295); Potassium 3.7 mMol/L (3.4-5.1); Sodium 136 mMol/L (136-145); Total Protein 6.7 gm/dL (5.7-8.2); eGFR 52 See Note
[2024-04-14 08:00] VITALS: BP 139/75; PULSE 55; RESP 18; TEMP 36.8; O2SAT 93
--- NOTE | 2024-04-14 09:08 | PC.CC ---
Patient is a 78 year-old male brought in on a 5150-hold for Danger to Others by [place] [employer]. PJWSultana met with patient [id number] to complete assessment. ASW introduced self, role, and reason for assessment. ASW disclosed limits of confidentiality as well. Patient appeared alert and oriented to self, place, and situation. Patient?s mood appeared euthymic; his behavior was pleasant and made appropriate eye contact throughout the assessment. No signs of delusions, paranoid or V/h. Patient reports he does not remember what happen last night at the facility where he was placed [facility]. Patient denied prior mental health, denied SI/HI/VH/AH. The following information is collateral from patient?s , Sarah who reports the patient has dementia and she cannot help care for him due to his dementia. [facility] employee, Libby reports they are unable to accommodate the patient back into their facility but are looking into their sister facility [facility]. Upon clinical consultation with TRAILHEAD MAINTENANCE WORKER, with Lois Campo the patient?s 5150-hold is being rescinded as he does not meet criteria due to his dementia. Lurdes with [facility] made contact with ASW and they are willing to accept patient at their facility. ASW, made contact with patient?s to provide her with updated information. ASW provided update to THEO Locktet, Dr. Mccormick, and possum trapper Lanise.
--- NOTE | 2024-04-14 09:19 | PC.CC ---
Milana VELAZQUEZ will be arranging transportation for patient with [facility] ETA p/u is pending.
--- NOTE | 2024-04-14 09:20 | PC.NURSE ---
pt resting in bed in no apparent distress. pt cooperative. sitter at bedside
--- NOTE | 2024-04-14 10:01 | PC.CC ---
Armando provided ETA p/u for 1100.
[2024-04-14 10:20] VITALS: BP 120/68; PULSE 57; RESP 18; TEMP 36.8; O2SAT 94
[2024-04-14] MEDS: QUEtiapine FUMARATE 25 MG TABLET PO (10:42)
== END 2024-04-14 10:49 | disposition skilled nursing facility (03) ==
PROVIDERS: Emergency Medicine; Emergency Provider Emergency Medicine; PCP Family Medicine
DX: Z00.8 Encounter for other general examination (principal); F02.C2 Dementia in other diseases classified elsewhere, severe, with psychotic disturbance
CPT/HCPCS: 36415; 80053; 80307; 80320; 85025; 85610; 90839; 96127; 96372; 99284; J1200; J1630; J2060; A9270; G0480